=== PATIENT | male | born 1950 | race Caucasian/White ===

== ENCOUNTER 2020-02-07 09:54 | Outpatient (CLI) | payer MEDICARE, SELFPAY ==
[2020-02-07 23:30] LABS: SARS-CoV-2 RNA PCR Negative
== END 2020-02-07 09:55 | disposition home or self-care (01) ==
LOC: CHSLAB 09:59
PROVIDERS: PCP Internal Medicine; Visit Provider Internal Medicine
DX: Z20.828 Contact with and (suspected) exposure to other viral communicable diseases (principal)
CPT/HCPCS: 87635; C9803; U0003

== ENCOUNTER 2020-03-09 08:43 | Outpatient (CLI) | payer MEDICARE, SELFPAY ==
[2020-03-09 09:24] LABS: SARS-CoV-2 Ag Negative (Negative)
[2020-03-11 17:16] LABS: SARS-CoV-2 RNA PCR Negative
== END 2020-03-09 08:44 | disposition home or self-care (01) ==
PROVIDERS: PCP Internal Medicine; Visit Provider Internal Medicine
DX: Z20.822 Contact with and (suspected) exposure to COVID-19 (principal)
CPT/HCPCS: 87426; C9803; U0003; U0005

== ENCOUNTER 2021-11-27 18:27 | Emergency (ER) | payer MEDICARE, SELFPAY ==
[2021-11-27 18:47] VITALS: BP 162/93; PULSE 78; RESP 16; O2SAT 97
[2021-11-27 19:16] VITALS: TEMP 36.1
--- NOTE | 2021-11-27 19:21 | ED.LOWEXIN ---
HPI - Extremity Injury (Lower) General Chief Complaint: Extremity Injury, Lower Stated Complaint: right leg injury Source: patient Mode of arrival: ambulatory Limitations: no limitations History of Present Illness HPI Narrative: 71-year-old male history of hypertension, atrial fibrillation on Xarelto was getting off his car this morning when he sustained -- V shape and measuring 3.5 cm. The bleeding stopped and he proceeded to work all day. When he returned from work and took off his dressing he noted profuse bleeding from the laceration. No other injuries noted. Onset (ago): hour(s) ( 12 hours ago) Type of Injury: blunt Place: street/outdoors Severity: mild Relieving factors: nothing Exacerbating factors: nothing Related Data Home Medications Medication Instructions Recorded Confirmed amlodipine 2.5 mg tablet 2.5 mg DAILY 11/27/21 11/27/21 carvedilol 3.125 mg tablet 3.125 mg BID 11/27/21 11/27/21 duloxetine 30 mg capsule,delayed 30 mg PO DAILY 11/27/21 11/27/21 release nortriptyline 25 mg capsule 25 mg DAILY 11/27/21 11/27/21 rivaroxaban 20 mg tablet (Xarelto) 20 mg DAILY 11/27/21 11/27/21 Allergies Allergy/AdvReac Type Severity Reaction Status Date / Time No Known Allergies Allergy Verified 11/27/21 18:55 Review of Systems Review of Systems: All systems reviewed & are unremarkable except as noted in HPI and below Constitutional: Constitutional: Reports as per HPI and Reports no additional constitutional complaints Eyes: Eyes: Reports as per HPI and Reports no additional eye complaints ENT: Reports system reviewed and no additional complaints, except as documented and Reports as per HPI Comments: hard of hearing. Cardiovascular: Cardiovascular: Reports as per HPI and Reports no additional cardiovascular complaints Respiratory: Respiratory: Reports as per HPI and Reports no additional respiratory complaints Gastrointestinal: Gastrointestinal: Reports as per HPI and Reports no additional gastrointestinal complaints Genitourinary: Genitourinary: Reports no additional male genitourinary complaints and Reports as per HPI Musculoskeletal: Musculoskeletal: Reports no additional musculoskeletal complaints and Reports as per HPI Integumentary/Breasts: Comments: V-shaped laceration on his right rosales measuring 3.5 cm. no bleeding at this time Neurologic: Reports system reviewed and no additional complaints, except as documented and Reports as per HPI Psychiatric: Psychiatric: Reports no additional psychiatric complaints and Reports as per HPI Endocrine: Endocrine: Reports no additional endocrine complaints and Reports as per HPI Hematologic/Lymphatic: Hematologic/Lymphatic: Reports no additional hematologic/lymphatic complaints and Reports as per HPI Allergic/Immunologic: Allergic/Immunologic: Reports no additional allergic/immunologic complaints and Reports as per HPI [facility] Past Medical History Medical History Atrial fibrillation Hypertension Exam Const: General: no acute distress Orientation/consciousness: patient oriented x3 Limitations: no limitations HENMT: Head: normal to inspection Ears: external ears normal Face/Nose/Sinus: Normal external nose present Face and sinus: normal facial exam Mouth: Yes Normal oral and palatal mucosa present Throat: posterior oropharynx normal Other: decreased hearing Eyes: Conjunctivae: conjunctivae normal Pupils: Equal, round and reactive pupils present Direct Ophthalmoscopy: no photophobia Neck: Neck: normal visual inspection, no lymphadenopathy, no meningeal signs and lymphadenopathy Chest: Chest palpation & inspection: normal inspection of the chest Resp: Effort & Inspection: normal respiratory effort Auscultation: clear to auscultation bilaterally Cardio: Rate: tachycardic Rhythm: abnormal rhythm GI: GI Palp: Yes Soft to palpation Auscultation: normal bowel sounds Other:
[2021-11-27 20:08] VITALS: BP 126/87; PULSE 75; RESP 16; TEMP 36.4; O2SAT 99
== END 2021-11-27 20:14 | disposition home or self-care (01) ==
PROVIDERS: Emergency Provider Internal Medicine Critical Care Medicine; PCP Internal Medicine
DX: I48.91 Unspecified atrial fibrillation (principal); S81.811A Laceration without foreign body, right lower leg, initial encounter; I10 Essential (primary) hypertension
CPT/HCPCS: 12002; 99282

== ENCOUNTER 2021-11-29 10:52 | Outpatient (CLI) | payer MEDICARE, SELFPAY ==
[2021-11-29 11:36] LABS: Basophils Absolute Auto 0.04 K/mm3 (0.00-0.10); Basophils Percent Auto 0.5 % (0.0-1.0); Eosinophils Absolute Auto 0.04 K/mm3 (0.02-0.50); Eosinophils Percent Auto 0.5 % (1.0-6.0); Hematocrit 37.9 % (37.0-46.0); Hemoglobin 12.9 g/dL (12.4-15.3); Immature Granulocyte Absolute 0.02 K/mm3 (0.00-0.00); Immature Granulocyte Percent A 0.2 % (0.0-0.0); Lymphocytes Absolute Auto 1.49 K/mm3 (1.10-4.50); Mean Corpuscular Hemoglobin 33.9 pg (27.0-31.0); Mean Corpuscular Volume 99.5 fL (78.0-102.0); Mean Platelet Volume 8.9 fl (8.7-11.0); Monocytes Absolute Auto 0.58 K/mm3 (0.10-0.90); Neutrophils Absolute Auto 6.1 K/mm3 (1.7-7.2); Neutrophils Percent Auto 73.8 % (50.0-70.0); Platelet Count Result 254 K/mm3 (150-420); Red Blood Count 3.81 M/mm3 (4.70-6.10); White Blood Count 8.3 K/mm3 (4.8-10.8)
[2021-11-29 12:24] LABS: Anion Gap 7 mmol/L (8-16); Blood Urea Nitrogen 35 mg/dL (7-18); Calcium 9.4 mg/dL (8.5-10.1); Carbon Dioxide 29 mmol/L (21-32); Chloride 103 mmol/L (98-108); Estimated Glomerular Filt Rate > 60; Glucose 113 mg/dL (70-99); Osmolality Calculated 297 mOsm/kg (285-295); Potassium 4.9 mmol/L (3.5-5.1); Sodium 139 mmol/L (136-145)
== END 2021-11-29 10:53 | disposition home or self-care (01) ==
LOC: CHSLAB 10:55
PROVIDERS: PCP Internal Medicine; Visit Provider Internal Medicine Cardiovascular Disease
DX: I48.19 Other persistent atrial fibrillation (principal); I42.9 Cardiomyopathy, unspecified
CPT/HCPCS: 36415; 80048; 85025

== ENCOUNTER 2021-12-10 08:34 | Outpatient (CLI) | payer MEDICARE, SELFPAY ==
--- NOTE | ~2021-12-10 | XR_ITS ---
XR knee LT min 4V DATE: 12/10/2021 09:17 INDICATION: Chronic left knee pain TECHNIQUE: 5 views COMPARISON: None FINDINGS: There is prominent narrowing at the medial compartment joint space. There is enthesopathy at the quadriceps and patellar tendon insertion sites. There is mild periarticu lar spurring of the patella. No fracture, dislocation, periosteal reaction or bone destruction. No joint effusion is noted. No rad iopaque intra-articular loose body or chondrocalcinosis. IMPRESSION: Osteoarthritis, most severe at the medial compartment Reviewed, dictated and finalized at location A.
--- NOTE | ~2021-12-10 | XR_ITS ---
XR knee RT min 4V DATE: 12/10/2021 09:17 INDICATION: Chronic right knee pain TECHNIQUE: 5 views COMPARISON: None FINDINGS: There is enthesopathy at the superior pole of the patella. Heterotopic calcifications are n oted along the quadriceps muscle distally. There is prominent joint space narrowing of the medial compartment with some cupping of the medial ti bial plateau. There is periarticular spurring at all 3 compartments. No fracture or dislocation, joint effusion, periosteal reaction or bone destruction, radiopaque intra -articular loose body or chondrocalcinosis is detected. 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 IMPRESSION: Tricompartment osteoarthritis, most severe at the medial compartmen t
== END 2021-12-10 08:35 | disposition home or self-care (01) ==
LOC: CHSIMG 08:37
PROVIDERS: PCP Internal Medicine; Visit Provider Orthopaedic Surgery
DX: M25.562 Pain in left knee (principal); M25.561 Pain in right knee
CPT/HCPCS: 73564

== ENCOUNTER 2022-07-01 10:59 | Outpatient (CLI) | payer MEDICARE, SELFPAY ==
[2022-07-01 11:12] LABS: Basophils Absolute Auto 0.05 K/mm3 (0.00-0.10); Eosinophils Absolute Auto 0.06 K/mm3 (0.02-0.50); Eosinophils Percent Auto 1.2 % (1.0-6.0); Hematocrit 40.4 % (37.0-46.0); Hemoglobin 13.3 g/dL (12.4-15.3); Immature Granulocyte Absolute 0.01 K/mm3 (0.00-0.00); Immature Granulocyte Percent A 0.2 % (0.0-0.0); Lymphocytes Absolute Auto 1.54 K/mm3 (1.10-4.50); Mean Corpuscular HGB Conc 32.9 g/dL (32.0-36.0); Mean Corpuscular Hemoglobin 33.3 pg (27.0-31.0); Mean Platelet Volume 8.8 fl (8.7-11.0); Monocytes Absolute Auto 0.36 K/mm3 (0.10-0.90); Monocytes Percent Auto 7.5 % (2.0-11.0); Neutrophils Absolute Auto 2.8 K/mm3 (1.7-7.2); Neutrophils Percent Auto 58.1 % (50.0-70.0); Platelet Count Result 369 K/mm3 (150-420); Red Cell Distribution Width 12.9 % (11.6-14.4); White Blood Count 4.8 K/mm3 (4.8-10.8)
[2022-07-01 11:13] LABS: Appearance Urine Clear (Clear); Bilirubin Urine 1+ (Negative); Blood Urine Negative (Negative); Glucose Urine UA Negative (Negative); Ketones Urine Trace (Negative); Leukocyte Esterase Ur Trace (Negative); Nitrate Urine Negative (Negative); Protein Urine 1+ (Negative)
[2022-07-01 11:25] LABS: Color Urine Amber (Yellow)
[2022-07-01 11:26] LABS: Add Urine Microscopic? YES; Bacteria Urine Trace /hpf; RBC Urine 0-2 /hpf (0-2); WBC Urine 0-3 /hpf (0-3)
[2022-07-01 12:20] LABS: Alanine Aminotransferase 50 U/L (16-63); Albumin Level 3.8 g/dL (3.4-5.0); Alkaline Phosphatase 67 U/L (46-116); Anion Gap 7 mmol/L (8-16); Aspartate Amino Transferase 28 U/L (15-37); Bilirubin,Total 0.8 mg/dL (0.00-1.00); Blood Urea Nitrogen 21 mg/dL (7-18); Calcium 9.4 mg/dL (8.5-10.1); Carbon Dioxide 29 mmol/L (21-32); Chloride 102 mmol/L (98-108); Cholesterol 198 mg/dL (0-200); Estimated Glomerular Filt Rate > 60; Glucose 92 mg/dL (70-99); HDL Direct 10 mg/dL (40-60); LDL Cholesterol Calculated 161 mg/dL (<130); Osmolality Calculated 289 mOsm/kg (285-295); Potassium 4.9 mmol/L (3.5-5.1); Prostate Specific Antigen 1.2 ng/mL (< OR = 4.0); Sodium 138 mmol/L (136-145); Thyroid Stimulating Hormone 2.27 uIU/mL (0.36-3.74); Total Protein 6.7 g/dL (6.4-8.2); Triglycerides 133 mg/dL (0-150)
== END 2022-07-01 11:00 | disposition home or self-care (01) ==
LOC: CHSLAB 11:02
PROVIDERS: PCP Internal Medicine; Visit Provider Internal Medicine
DX: Z12.5 Encounter for screening for malignant neoplasm of prostate (principal); I48.91 Unspecified atrial fibrillation; E78.5 Hyperlipidemia, unspecified
CPT/HCPCS: 36415; 80053; 80061; 81001; 84153; 84443; 85025; G0103

== ENCOUNTER 2023-10-30 10:47 | Emergency (ER) | payer MEDICARE, SELFPAY ==
[2023-10-30] VITALS (36 sets, daily range): BP systolic 108–141; BP diastolic 57–74; PULSE 51–68; RESP 12–23; TEMP 36.4; O2SAT 93–100
--- NOTE | ~2023-10-30 | XR_ITS ---
EXAMINATION: XR chest 1V portable DATE: 10/30/2023 11:07 INDICATION: Weakness. Hypotension. TECHNIQUE: A single frontal view of the chest was obtained. COMPARISON: None. FINDINGS: There is no pneumonia, pleural effusion, or pneumothorax. Cardiomegaly is noted. IMPRESSION: 1. Cardiomegaly. Reviewed, dictated and finalized at location A. IMPRESSION: 1. Cardiomegaly.
--- NOTE | 2023-10-30 10:51 | ECG_ITS ---
Test Date: 2023-10-30 11:00:59 Measurements Intervals [place] Rate: 70 P: 0 IA: 0 QRS: 69 QRSD: 105 T: 56 QT: 422 QTc: 456 Interpretive Statements ATRIAL FIBRILLATION ST-T WAVE ABNORMALITY IN ANTEROLATERAL LEADS- CONSIDER ISCHEMIA ABNORMAL ECG No previous ECG available for comparison Electronically Signed On 10-30-2023 11:02:41 CDT by Miguel Warner D.O.
--- NOTE | 2023-10-30 10:56 | ED.GENADULT ---
HPI - General Adult General Chief complaint: Arrhythmia/Palpitations Stated complaint: chest pain Source: patient Mode of arrival: ambulatory Limitations: no limitations History of Present Illness HPI narrative: 73 years old white male lives alone, noticed that his blood pressure this morning is lower than usual approximately 97/51. Patient usually runs at higher level than this 1. Called his daughter who brought him to the emergency room. He denies any headache, chest pain, shortness of breath, back pain or abdominal pain. On arrival to the ED blood pressure is 141/66. Patient denies any fever, chills, nausea, vomiting, diarrhea, constipation or urinary symptoms Related Data Home Medications Medication Instructions Recorded Confirmed amlodipine 2.5 mg tablet 2.5 mg DAILY 11/27/21 10/31/23 carvedilol 3.125 mg tablet 3.125 mg BID 11/27/21 10/31/23 duloxetine 30 mg capsule,delayed 30 mg PO DAILY 11/27/21 10/31/23 release nortriptyline 25 mg capsule 25 mg DAILY 11/27/21 10/31/23 rivaroxaban 20 mg tablet (Xarelto) 20 mg DAILY 11/27/21 10/31/23 Allergies Allergy/AdvReac Type Severity Reaction Status Date / Time No Known Allergies Allergy Verified 10/30/23 11:03 Review of Systems Review of Systems: All systems reviewed & are unremarkable except as noted in HPI and below PMFSH Past Medical History Medical History Arthritis Atrial fibrillation Depression Hearing loss Hypertension Surgical History Surgical History History of appendectomy 2010 Family History Family History (Updated 10/31/23 @ 06:30 by Lacey Amos RN) Father Cerebrovascular accident Mother Cancer Other Arthritis Depression Diabetes mellitus HLD (hyperlipidemia) Heart disease Hypertension Social History Social History Smoking status: Never smoker Alcohol intake: former Substance use: never Substance use type: does not use Do You Feel Safe in your Home?: Yes Lack of Transportation: No Lack of Food: Never True Current Housing: I Have Housing Concerned About Future Housing: No Difficulty Paying Gas/Electric Bills: No Difficulty Paying for Meds: No Currently Unemployed: No Education: High School Diploma/GED Difficulty w/ Childcare or Family Care: No Occupation/Education: occupation Gender identity (if verbalized by the patient): Male Spiritual care concerns: No Exam Narrative: General appearance: Well-developed, well-nourished Skin: Normal color Head: Normocephalic, nontraumatic Eyes: Clear conjunctiva ENT: Oropharynx normal, ears normal, nose normal Neck: Supple, nontender Chest and respiratory: Airway patent, no respiratory distress, no accessory muscle use Heart: irregular irregularity Abdomen: Soft, nontender, no organomegaly, quiet bowel sounds Vascular: Normal peripheral pulses, normal capillary refill. 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 Park Accepted patient transferred to hospitalist Date: 10/30/23 Time: 14:01 Consultation #2: DR MAGANA, HOSPITALIST AT [facility] WHO ACCEPTED PATIENT TRANSFER Date: 10/31/23 Vital Signs Vital signs: Vital Signs Temperature 36.4 C 10/30/23 10:47 Pulse Rate 66 10/30/23 10:47 Respiratory Rate 15 10/30/23 10:47 Blood Pressure 141/66 H 10/30/23 10:47 Pulse Oximetry 100 10/30/23 10:47 Oxygen Delivery Room Air 10/29
[2023-10-30 11:13] LABS: Hematocrit 22.4 % (37.0-46.0); Hemoglobin 7.3 g/dL (12.4-15.3); Mean Corpuscular HGB Conc 32.6 g/dL (32-36); Mean Corpuscular Hemoglobin 30.2 pg (27.0-31.0); Mean Corpuscular Volume 92.6 fL (78.0-102.0); Mean Platelet Volume 7.7 fl (8.7-11.0); Platelet Count Result 310 K/mm3 (150-420); Red Blood Count 2.42 M/mm3 (4.70-6.10); Red Cell Distribution Width 12.7 % (11.6-14.4); White Blood Count 3.8 K/mm3 (4.8-10.8)
[2023-10-30 11:30] LABS: INR 1.1; Partial Thromboplastin Time 26.4 Sec (23.9-30.70); Prothrombin Time 11.6 Seconds (9.50-12.1)
--- NOTE | 2023-10-30 11:45 | PC.NURSE ---
Pt resting comfortably in his room with daughter at bedside. I explained to both of them that the analyzer machine in lab is down and that his blood has to be taken to [facility] to be run and that this will cause a delay in results. They stated that understood.
--- NOTE | 2023-10-30 12:02 | PC.NURSE ---
Notified ERP, by phone, that pt's heart has been consistently in the 50's. No new orders at this time.
[2023-10-30 12:06] LABS: Alanine Aminotransferase 23 U/L (6-50); Albumin Level 3.9 g/dL (3.5-5.1); Alkaline Phosphatase 53 U/L (38-126); Anion Gap 12 mmol/L (4-12); Aspartate Amino Transferase 29 U/L (17-59); Bilirubin,Total 0.4 mg/dL (0.2-1.3); Blood Urea Nitrogen 24 mg/dL (9-20); Calcium 9.1 mg/dL (8.4-10.2); Carbon Dioxide 23 mmol/L (22-30); Chloride 99 mmol/L (98-107); Estimated CRCL calculation 60 ml/min; Estimated Glomerular Filt Rate > 60; Glucose 119 mg/dL (65-110); Osmolality Calculated 283 mOsm/kg (285-295); Sodium 134 mmol/L (137-145)
[2023-10-30 12:13] LABS: Band Neutrophils Percent 0 % (0-6); Basophils Absolute Manual 0.03 K/mm3 (0-0.1); Basophils Percent Manual 1 % (0-1); Eosinophils Absolute Manual 0.07 K/mm3 (0.02-0.50); Eosinophils Percent Manual 2 % (1-6); Lymphocytes Percent Manual 29 % (18-44); Monocytes Absolute Manual 0.19 K/mm3 (0.1-0.90); Monocytes Percent Manual 5 % (3-9); Neutrophils Absolute Manual 2.39 K/mm3 (1.3-6.7); Neutrophils Percent Manual 63 % (46-73); Platelet Estimate Adequate (Adequate); Schistocytes None Seen; Total Cells Counted 100
[2023-10-30 12:17] LABS: Troponin I < 0.012 ng/mL (0.000-0.034)
[2023-10-30 12:18] LABS: Occult Blood Negative (Negative)
--- NOTE | 2023-10-30 13:40 | PC.NURSE ---
Pt resting comfortably in stretcher. Got pt a warm blanket. Daughter at bedside.
--- NOTE | 2023-10-30 14:20 | PC.NURSE ---
Updated pt and his daughter on status of transfer to [place]. Dr Hood accepted pt to service. alondra James sup, added pt to waitlist for bed. Pt resting comfortably in stretcher.
--- NOTE | 2023-10-30 15:40 | PC.NURSE ---
Pt still resting comfortably. Daughter at bedside. No requests or concerns at this time.
--- NOTE | 2023-10-30 16:35 | PC.NURSE ---
Discussed with pt and daughter that we are still waiting for a bed at [place]. Pt has no needs or concerns at this time.
--- NOTE | 2023-10-30 17:12 | PC.NURSE ---
Pt dozing in stretcher. Daughter still at bedside.
--- NOTE | 2023-10-30 18:06 | PC.NURSE ---
Pt moved to Room 3 and placed in hospital bed for comfort. Gave him heart healthy dinner tray. Daughter still at bedside. Still waiting on bed at [place].
[2023-10-30 18:19] LABS: Hematocrit 23.9 % (37.0-46.0); Hemoglobin 7.7 g/dL (12.4-15.3)
[2023-10-30] MEDS: SODIUM CHLORIDE 0.9% IV 1,000 ML 75 ML IV CONT (18:22)
--- NOTE | 2023-10-30 21:50 | PC.NURSE ---
pt stood at side of bed to use urinal. pt back in bed. no complaints at this time
[2023-10-31] VITALS (38 sets, daily range): BP systolic 116–146; BP diastolic 62–85; PULSE 42–76; RESP 13–23; TEMP 36.1–36.2; O2SAT 94–100
[2023-10-31 00:11] LABS: Hematocrit 20.7 % (37.0-46.0)
[2023-10-31 00:13] LABS: Hemoglobin 6.7 g/dL (12.4-15.3)
--- NOTE | 2023-10-31 00:14 | PC.NURSE ---
pt stood at side of bed to use urinal tech was present. pt back in bed no complaints at this time
[2023-10-31] MEDS: NORTRIPTYLINE HCL 25 MG CAPSULE PO (01:20)
[2023-10-31] MEDS: SODIUM CHLORIDE 0.9% IV 250 ML 30 ML IV CONT (01:55)
== END 2023-10-31 05:15 | disposition short-term general hospital (02) ==
PROVIDERS: Emergency Provider Emergency Medicine; PCP Internal Medicine
DX: K92.2 Gastrointestinal hemorrhage, unspecified (principal); D64.9 Anemia, unspecified; I48.91 Unspecified atrial fibrillation; I10 Essential (primary) hypertension; Z79.01 Long term (current) use of anticoagulants; Z79.899 Other long term (current) drug therapy
CPT/HCPCS: 36415; 36430; 71045; 80053; 82272; 84484; 85014; 85018; 85025; 85610; 85730; 86850; 86900; 86901; 86920; 93005; 96360; 96361; 99285; A9270; J7030; J7050; P9016

== ENCOUNTER 2023-10-31 06:09 | Inpatient (IN) | payer MEDICARE, SELFPAY ==
[2023-10-31] VITALS (7 sets, daily range): BP systolic 111–161; BP diastolic 46–86; PULSE 50–75; RESP 16–22; TEMP 36.7–37; O2SAT 98–100; BMI 20.6
--- NOTE | 2023-10-31 06:00 | ADMGEN ---
This patient, Levon Lake, was admitted to [address] [place] [address] Room [facility] at 0550. Patient/family oriented to hospital policies and general routines including ID bracelet, bed and alarms, visiting hours, pain management, procedures, bathroom and other care routines, personal items, smoking policy, room service/diet, and visiting hours. Information on how to activate the Rapid Response Team has been discussed. Patient/Family are encouraged to report perceived risks to care and to ask questions if they do not understand what they are told or what they should do.
[2023-10-31 07:19] LABS: Basophils Percent Auto 0.8 % (0.2-1.2); Eosinophils Absolute Auto 0.1 K/mm3 (0-0.3); Eosinophils Percent Auto 1.5 % (0-4.4); Hematocrit 26.2 % (42.0-52.0); Hemoglobin 8.4 g/dL (14.0-18.0); Immature Granulocyte Absolute 0.01 K/mm3 (0.00-0.031); Immature Granulocyte Percent A 0.2 % (0-0.5); Lymphocytes Absolute Auto 1.69 K/mm3 (0.9-3.2); Lymphocytes Percent Auto 32.6 % (18.3-44.2); Mean Corpuscular HGB Conc 32.1 g/dl (32-36); Mean Corpuscular Hemoglobin 30.8 pg (26-34); Mean Platelet Volume 8.5 fl (7.4-10.4); Monocytes Absolute Auto 0.4 K/mm3 (0.1-0.6); Monocytes Percent Auto 8.5 % (2.6-8.5); Neutrophils Absolute Auto 2.9 K/mm3 (1.3-6.7); Neutrophils Percent Auto 56.4 % (45.5-73.1); Platelet Count Result 339 k/mm3 (150-375); Red Blood Count 2.73 M/mm3 (4.6-6.20); Red Cell Distribution Width 13.2 % (11.5-14.5); White Blood Count 5.2 K/mm3 (4.5-10.0)
[2023-10-31 07:28] LABS: Anion Gap 7 mmol/L (4-12); Blood Urea Nitrogen 17 mg/dL (9-20); Calcium 9.2 mg/dL (8.4-10.2); Carbon Dioxide 26 mmol/L (22-30); Chloride 103 mmol/L (98-107); Estimated CRCL calculation 75 ml/min; Estimated Glomerular Filt Rate > 60; Glucose 92 mg/dL (65-110); Potassium 4.2 mmol/L (3.4-5.0); Sodium 136 mmol/L (137-145)
[2023-10-31 07:31] LABS: INR 1.1; Prothrombin Time 14.5 Seconds (11.1-14.7)
[2023-10-31 07:32] LABS: Partial Thromboplastin Time 43.3 Seconds (22.3-36.8)
--- NOTE | 2023-10-31 13:48 | PM.IMHP ---
H&P: HPI History of Present Illness Date/Time: 10/31/23 13:48 Chief Complaint: Dizziness/low BP Narrative: Patient is a 73-year-old gentleman with past medical history of AFib admitted due to GI bleed. Patient daughter was at the bedside during the examination was able to give the history says since patient has some hearing issues. As per his daughter patient lives in a home, walks by himself without any assistance but patient has advanced OA of BL knee and pending knee replacement. Denies any heart surgery, stroke or any kidney disease. Patient daughter routinely checks on him but past 1 week she was not able to come to his house. Patient reported to his daughter that his diastolic pressure is not coming up above 40. Patient daughter works at [employer] who went to his house to check. She noted blood in his toilet bowl. She was trying to check his heart rate through the pulse ox but it ranges between 52-205. The blood pressure at the time was 110/ 60. She brought him to [facility]. Initial hemoglobin was 7.3 but the repeat was 6.7 and 1 unit of packed RBC was transfused. Later patient was transferred to [facility]. Pending GI evaluation. In the meantime we are holding Xarelto. Explained to the patient and his daughter risk versus benefit of stopping Xarelto. Both completely understands and wants Xarelto to be stopped. Repeat hemoglobin has been ordered. Currently patient is resting well in the bed with no signs of distress. Review of Systems Review of Systems: All systems reviewed & are unremarkable except as noted in HPI and below PMFSH Past Medical History Medical History (Updated 10/31/23 @ 15:00 by Lizandro Hernandes MD) Acute blood loss anemia Arthritis Atrial fibrillation Blood thinned due to long-term anticoagulant use Depression Hearing loss Hypertension Rectal bleeding Surgical History Surgical History History of appendectomy 2010 Family History Family History (Updated 10/31/23 @ 06:30 by Lacey Amos RN) Father Cerebrovascular accident Mother Cancer Other Arthritis Depression Diabetes mellitus HLD (hyperlipidemia) Heart disease Hypertension Social History Social History Smoking status: Never smoker Alcohol intake: former Substance use: never Substance use type: does not use Do You Feel Safe in your Home?: Yes Lack of Transportation: No Lack of Food: Never True Current Housing: I Have Housing Concerned About Future Housing: No Difficulty Paying Gas/Electric Bills: No Difficulty Paying for Meds: No Currently Unemployed: No Education: High School Diploma/GED Difficulty w/ Childcare or Family Care: No Occupation/Education: occupation Gender identity (if verbalized by the patient): Male Spiritual care concerns: No Meds Home Medications and Allergies Home Medications Medication Instructions Recorded Confirmed Type amlodipine 2.5 mg tablet 2.5 mg DAILY 11/27/21 10/31/23 History carvedilol 3.125 mg tablet 3.125 mg BID 11/27/21 10/31/23 History duloxetine 30 mg capsule,delayed 30 mg PO DAILY 11/27/21 10/31/23 History release nortriptyline 25 mg capsule 25 mg DAILY 11/27/21 10/31/23 History rivaroxaban 20 mg tablet (Xarelto) 20 mg DAILY 11/27/21 10/31/23 History Allergies Allergy/AdvReac Type Severity Reaction Status Date / Time No Known Allergies Allergy Verified 10/30/23 11:03 Vital Signs Vital Signs - 24 hr 10/31/23 06:00 10/31/23 08:00 10/31/23 12:00 Temperature 98.1 F Pulse Rate 59 L 52 L Respiratory Rate 22 H Blood Pressure 161/85 H Pulse Oximetry 100 Oxygen Delivery Room Air Exam Narrative: General appearance: Well-developed, well-nourished Skin: Normal color Head: Normocephalic, nontraumatic Eyes: Clear conjunctiva ENT: Oropharynx normal, ears normal, nose
--- NOTE | 2023-10-31 14:56 | WPDGICN ---
Assessment and Plan Assessment and plan (1) Acute blood loss anemia: Code(s): D62 - Acute posthemorrhagic anemia Status: Acute Assessment and Plan: s/p prbc will need egd and colonoscopy, plan thursday- also need to hold off xarelto for extra day no more episodes since admission and hgb responded to one unit monitor for more signs (2) GI (gastrointestinal bleed): Code(s): K92.2 - Gastrointestinal hemorrhage, unspecified Status: Acute Assessment and Plan: medical management scopes thursday (3) Rectal bleeding: Code(s): K62.5 - Hemorrhage of anus and rectum Status: Acute (4) Atrial fibrillation: Code(s): I48.91 - Unspecified atrial fibrillation Status: Acute (5) Blood thinned due to long-term anticoagulant use: Code(s): Z79.01 - care home (current) use of anticoagulants Status: Acute Assessment and Plan: on hold GI Consult Note Consult date/time: 10/31/23 14:56 Reason for consult: rectal bleeding, symptomatic anemia HPI: Levon Lake is a 73 year old male with past medical history of AFib admitted due to GI bleed. He has h/po Afib on xarelto, last colonoscopy over 10 years ago. He is hard of hearing and daughter helping with history. She checked on patient at home and noted he was quite weak, pale and his BP was running low, also he mentioned that had one episode of BRBPR (noted blood in toilet bowl). Denies nausea or vomiting. She brought him to [facility] and was orthostatic. Initial hemoglobin was 7.3 but the repeat was 6.7 and 1 unit of packed RBC was transfused, now up to 8.4, no more episodes of bleeding. Previously he was constipated. Review of Systems Constitutional: Constitutional: Reports lethargy and Reports weakness Eyes: Eyes: Denies blurry vision ENT: Denies Normal hearing present, Denies headache(s) and Denies neck pain Cardiovascular: Cardiovascular: Denies chest pain Respiratory: Respiratory: Denies cough Gastrointestinal: Gastrointestinal: Reports hematochezia Genitourinary: Genitourinary: Denies dysuria Musculoskeletal: Musculoskeletal: Denies neck pain Integumentary/Breasts: Skin/Breast: Denies dry skin Neurologic: Denies Abnormal speech present and Denies headache(s) Psychiatric: Psychiatric: Denies anxiety Endocrine: Endocrine: Denies change in body appearance Hematologic/Lymphatic: Hematologic/Lymphatic: Denies easy bleeding Allergic/Immunologic: Allergic/Immunologic: Denies urticaria PMFSH Past Medical History Medical History (Updated 10/31/23 @ 15:00 by Lizandro Hernandes MD) Acute blood loss anemia Arthritis Atrial fibrillation Blood thinned due to long-term anticoagulant use Depression Hearing loss Hypertension Rectal bleeding Surgical History Surgical History History of appendectomy 2010 Family History Family History (Updated 10/31/23 @ 06:30 by Lacey Amos RN) Father Cerebrovascular accident Mother Cancer Other Arthritis Depression Diabetes mellitus HLD (hyperlipidemia) Heart disease Hypertension Social History Social History Smoking status: Never smoker Alcohol intake: former Substance use: never Substance use type: does not use Do You Feel Safe in your Home?: Yes Lack of Transportation: No Lack of Food: Never True Current Housing: I Have Housing Concerned About Future Housing: No Difficulty Paying Gas/Electric Bills: No Difficulty Paying for Meds: No Currently Unemployed: No Education: High School Diploma/GED Difficulty w/ Childcare or Family Care: No Occupation/Education: occupation Gender identity (if verbalized by the patient): Male Spiritual care concerns: No Meds Home Medications and Allergies Home Medications Medication Instructions Recorded Confirmed Type amlodipine 2.5 mg
[2023-10-31 15:09] LABS: Hematocrit 26.9 % (42.0-52.0); Hemoglobin 8.6 g/dL (14.0-18.0)
[2023-10-31] MEDS: NORTRIPTYLINE HCL 25 MG CAPSULE PO (20:50)
[2023-10-31] MEDS: DULoxetine HCL 30 MG CAPSULE.DR PO (20:50)
--- NOTE | 2023-10-31 22:32 | PC.NURSE ---
Ethernet Network Architect holding patients evening dose of carvedilol per hospitalist instructions in report. ( if heart rate is below 60)
[2023-11-01] VITALS (10 sets, daily range): BP systolic 110–130; BP diastolic 56–76; PULSE 55–83; RESP 16–20; TEMP 36.1–36.9; O2SAT 100
[2023-11-01 05:46] LABS: Hematocrit 25.2 % (42.0-52.0); Mean Corpuscular HGB Conc 31.7 g/dl (32-36); Mean Corpuscular Hemoglobin 29.7 pg (26-34); Mean Corpuscular Volume 93.7 fl (80-100); Mean Platelet Volume 8.3 fl (7.4-10.4); Platelet Count Result 315 k/mm3 (150-375); Red Blood Count 2.69 M/mm3 (4.6-6.20); Red Cell Distribution Width 13.5 % (11.5-14.5); White Blood Count 5.7 K/mm3 (4.5-10.0)
[2023-11-01 06:03] LABS: Alanine Aminotransferase 20 U/L (6-50); Albumin Level 3.3 g/dL (3.5-5.1); Alkaline Phosphatase 52 U/L (38-126); Anion Gap 5 mmol/L (4-12); Aspartate Amino Transferase 25 U/L (17-59); Bilirubin,Total 0.4 mg/dL (0.2-1.3); Blood Urea Nitrogen 13 mg/dL (9-20); Carbon Dioxide 26 mmol/L (22-30); Chloride 106 mmol/L (98-107); Estimated CRCL calculation 75 ml/min; Estimated Glomerular Filt Rate > 60; Glucose 93 mg/dL (65-110); Potassium 4.3 mmol/L (3.4-5.0); Sodium 137 mmol/L (137-145)
--- NOTE | 2023-11-01 08:08 | PC.NURSE ---
RN hold morning Coreg dose as patient's heart rate is consistently below 60's. Per hospitalist note we are told hold Coreg if heart rate is less than 60.
--- NOTE | 2023-11-01 11:35 | WPDGIPROGNO ---
Progress Note: A&P Assessment and Plan (1) Acute blood loss anemia: Code(s): D62 - Acute posthemorrhagic anemia Status: Acute Assessment and Plan: hgb stable at 8 after blood transfusion egd and colonoscopy tomorrow (2) Rectal bleeding: Code(s): K62.5 - Hemorrhage of anus and rectum Status: Acute Assessment and Plan: no more episodes since admission continue to monitor (3) Blood thinned due to long-term anticoagulant use: Code(s): Z79.01 - skilled nursing (current) use of anticoagulants Status: Acute Assessment and Plan: on hold (4) Orthostatic hypotension: Code(s): I95.1 - Orthostatic hypotension Status: Acute (5) GI (gastrointestinal bleed): Code(s): K92.2 - Gastrointestinal hemorrhage, unspecified Status: Inactive Subjective Date/time seen: 11/01/23 11:35 Interval history: feeling tired, no more bleeding he is comfortable family at bedside Review of Systems Review of Systems: All systems reviewed & are unremarkable except as noted in HPI and below Exam Const: General: comfortable and no acute distress HENMT: Face/Nose/Sinus: Normal nares present Eyes: General: appearance normal, both eyes and all related structures Neck: Neck: supple Resp: Auscultation: clear to auscultation bilaterally Cardio: Rate: regular rate Rhythm: regular rhythm GI: Inspection: non-distended GI Palp: Yes Soft to palpation and No Tenderness to palpation present (GI) Auscultation: normal bowel sounds Skin: General skin exam: no rashes or lesions noted Neuro: Speech: normal speech Motor exam (neuro): 5/5 motor strength present throughout Extrem: General: normal to inspection Psych: Mental Status: mental status grossly normal Objective Data Vital Signs Vital Signs: Vital Signs - 24 hr 10/31/23 12:00 10/31/23 14:00 10/31/23 16:00 Temperature 98.2 F Pulse Rate 52 L 59 L 75 Respiratory Rate 16 Blood Pressure 111/46 L Pulse Oximetry 98 Oxygen Delivery 10/31/23 20:56 10/31/23 21:54 10/31/23 20:00 Temperature 98.6 F Pulse Rate 50 L 56 L 70 Respiratory Rate 16 Blood Pressure 148/86 H Pulse Oximetry 99 Oxygen Delivery 11/01/23 00:00 11/01/23 04:00 11/01/23 05:58 Temperature 98.4 F Pulse Rate 66 55 L 71 Respiratory Rate 16 Blood Pressure 130/76 Pulse Oximetry 100 Oxygen Delivery 11/01/23 08:00 Temperature Pulse Rate Respiratory Rate Blood Pressure Pulse Oximetry Oxygen Delivery Room Air Intake/Output Intake/Output: Intake & Output 10/29/23 10/30/23 10/31/23 11/01/23 23:59 23:59 23:59 23:59 Intake Total 1680 200 Balance 1680 200 Meds/Results Medications: Active Medications Generic Name Dose Route Start Last Admin Trade Name Freq PRN Reason Stop Dose Admin Acetaminophen 650 mg 10/31/23 06:08 Acetaminophen 325 Mg Tablet PO Q4H PRN Mild Pain (1-3) or Fever Al Hydrox/Mg Hydrox/Simethicone 30 ml 10/31/23 06:08 Mag Hydrox/Al Hydrox/Simeth 30 Ml Udc PO QID PRN Dyspepsia Bisacodyl 20 mg 11/01/23 18:00 Bisacodyl 5 Mg Tablet Ec PO 11/01/23 18:01 ONCE ONE Carvedilol 3.125 mg 10/31/23 10:10 11/01/23 08:08 Carvedilol 3.125 Mg Tablet PO Not Given Q12HR DOROTHY Duloxetine HCl 30 mg 10/31/23 21:00 10/31/23 20:50 Duloxetine Hcl 30 Mg Capsule.Dr PO 30 mg 2100 DOROTHY Administration Magnesium Citrate 300 ml 11/02/23 02:00 Magnesium Citrate 300 Ml Btl PO 11/02/23 02:01 ONCE ONE Magnesium Hydroxide 30 ml 10/31/23 06:08 Magnesium Hydroxide Susp 30 Ml Udc PO DAILY PRN Constipation Nortriptyline HCl 25 mg 10/31/23 21:00 10/31/23 20:50 Nortriptyline Hcl 25 Mg Capsule PO 25 mg HS DOROTHY Administration Ondansetron HCl 4 mg 10/31/23 06:08 Ondansetron Inj 4 Mg/2 Ml Vial IV PUSH Q6H PRN Nausea And Vomiting Polyethylene Glycol 238 gm 11/01/23 18:00 Rafael
--- NOTE | 2023-11-01 14:39 | PM.IMPN ---
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, left knee Status: Acute (4) Right knee DJD: Qualifiers: Osteoarthritis type: primary Qualified Code(s): M17.11 - Unilateral primary osteoarthritis, right knee Code(s): M17.11 - Unilateral primary osteoarthritis, right knee Status: Acute (5) Atrial fibrillation: Code(s): I48.91 - Unspecified atrial fibrillation Status: Acute Plan #GI Bleed Hemoglobin 13.18 Jun 2022 Transfused 1 unit at [place] Monitor vitals Trending hemoglobin GI on board Possible colonoscopy tomorrow Target hemoglobin 7 #Atrial fibrillation Hold Xarelto Reviewed risk versus benefit of holding Xarelto to the patient and the POA Carvedilol 3.125 b.i.d., hold if heart rate is less than 60 Currently holding Coreg due to low HR and doesnt want to mask the sx of anemia Subjective Date/time seen: 11/01/23 14:39 Interval history: Patient is evaluated at bedside along with his daughter. patients reports feeling tired. His HgB is dropped from 8.6 to 8. Patient will undergo colonoscopy and upper endoscopy tomorrow. Currently holding Coreg due to low HR and doesnt want to mask the sx of anemia Review of Systems Review of Systems: All systems reviewed & are unremarkable except as noted in HPI and below Exam Narrative: General appearance: Well-developed, well-nourished Skin: Normal color Head: Normocephalic, nontraumatic Eyes: Clear conjunctiva ENT: Oropharynx normal, ears normal, nose normal Neck: Supple, nontender Chest and respiratory: Airway patent, no respiratory distress, no accessory muscle use Heart: irregular irregularity Abdomen: Soft, nontender, no organomegaly, quiet bowel sounds Vascular: Normal peripheral pulses, normal capillary refill. Musculoskeletal: Normal range of motion, nontender back Neurologic: Alert and oriented ?3, PLATE MOUNTER is normal as tested, no gross motor deficit Objective Data Vital Signs Vital Signs: Vital Signs - 24 hr 10/31/23 16:00 10/31/23 20:56 10/31/23 21:54 Temperature 98.6 F Pulse Rate 75 50 L 56 L Respiratory Rate 16 Blood Pressure 148/86 H Pulse Oximetry 99 Oxygen Delivery 10/31/23 20:00 11/01/23 00:00 11/01/23 04:00 Temperature Pulse Rate 70 66 55 L Respiratory Rate Blood Pressure Pulse Oximetry Oxygen Delivery 11/01/23 05:58 11/01/23 08:00 11/01/23 14:30 Temperature 98.4 F 98.4 F Pulse Rate 71 66 Respiratory Rate 16 16 Blood Pressure 130/76 110/65 Pulse Oximetry 100 100 Oxygen Delivery Room Air Intake/Output Intake/Output: Intake & Output 10/29/23 10/30/23 10/31/23 11/01/23 23:59 23:59 23:59 23:59 Intake Total 1680 440 Balance 1680 440 Meds/Results Medications: Active Medications Generic Name Dose Route Start Last Admin Trade Name Freq PRN Reason Stop Dose Admin Acetaminophen 650 mg 10/31/23 06:08 Acetaminophen 325 Mg Tablet PO Q4H PRN Mild Pain (1-3) or Fever Al Hydrox/Mg Hydrox/Simethicone 30 ml 10/31/23 06:08 Mag Hydrox/Al Hydrox/Simeth 30 Ml Udc PO QID PRN Dyspepsia Bisacodyl 20 mg 11/01/23 18:00 Bisacodyl 5 Mg Tablet Ec PO 11/01/23 18:01 ONCE ONE Carvedilol 3.125 mg 10/31/23 10:10 11/01/23 08:08 Carvedilol 3.125 Mg Tablet PO Not Given Q12HR DOROTHY Duloxetine HCl 30 mg 10/31/23 21:00 10/31/23 20:50 Duloxetine Hcl 30 Mg Capsule.Dr PO 30 mg 2100 DOROTHY Administration Sodium Chloride 1,000 mls @ 75 mls/hr 11/01/23 11:55 Normal Saline Iv IV CONT .[id number] DOROTHY Magnesium Citrate 300 ml 11/02/23 02:00 Magnesium Citrate 300 Ml Btl PO 11/02/23 02:01 ONCE ONE Magnesium Hydr
[2023-11-01 17:03] LABS: Hematocrit 25.3 % (42.0-52.0); Hemoglobin 8.3 g/dL (14.0-18.0)
[2023-11-01] MEDS: BISACODYL 5 MG TABLET EC 20 MG PO (17:29)
[2023-11-01] MEDS: polyethylene glycoL 3350 238 GM BOTTLE PO (17:30)
[2023-11-01] MEDS: carvediloL 3.125 MG TABLET PO (20:31)
[2023-11-01] MEDS: NORTRIPTYLINE HCL 25 MG CAPSULE PO (20:31)
[2023-11-01] MEDS: DULoxetine HCL 30 MG CAPSULE.DR PO (20:32)
[2023-11-02] VITALS (13 sets, daily range): BP systolic 110–138; BP diastolic 52–84; PULSE 52–103; RESP 16–20; TEMP 36.2–36.4; O2SAT 96–100
[2023-11-02] MEDS: SODIUM CHLORIDE 0.9% IV 1,000 ML 75 ML IV CONT (01:50)
[2023-11-02] MEDS: MAGNESIUM CITRATE 300 ML BTL PO (01:52)
[2023-11-02 05:34] LABS: Hematocrit 25.7 % (42.0-52.0); Hemoglobin 8.2 g/dL (14.0-18.0); Mean Corpuscular HGB Conc 31.9 g/dl (32-36); Mean Corpuscular Hemoglobin 29.9 pg (26-34); Mean Corpuscular Volume 93.8 fl (80-100); Mean Platelet Volume 8.1 fl (7.4-10.4); Platelet Count Result 322 k/mm3 (150-375); Red Blood Count 2.74 M/mm3 (4.6-6.20); Red Cell Distribution Width 13.7 % (11.5-14.5); White Blood Count 6.4 K/mm3 (4.5-10.0)
[2023-11-02 05:48] LABS: Alanine Aminotransferase 23 U/L (6-50); Albumin Level 3.5 g/dL (3.5-5.1); Alkaline Phosphatase 54 U/L (38-126); Anion Gap 7 mmol/L (4-12); Aspartate Amino Transferase 28 U/L (17-59); Bilirubin,Total 0.4 mg/dL (0.2-1.3); Blood Urea Nitrogen 12 mg/dL (9-20); Calcium 9.5 mg/dL (8.4-10.2); Carbon Dioxide 23 mmol/L (22-30); Chloride 106 mmol/L (98-107); Estimated CRCL calculation 75 ml/min; Estimated Glomerular Filt Rate > 60; Glucose 106 mg/dL (65-110); Potassium 4.1 mmol/L (3.4-5.0); Sodium 136 mmol/L (137-145)
--- NOTE | 2023-11-02 08:52 | PM.IMPN ---
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 Reviewed the report Hold anticoagulant for 3 days. The risk versus benefit of holding the anticoagulants explained to the patient family. Patient wants to decide whether continuing the anticoagulants with special procedures tech. Target hemoglobin 7 #Atrial fibrillation Hold Xarelto Reviewed risk versus benefit of holding Xarelto to the patient and the POA Carvedilol 3.125 b.i.d., hold if heart rate is less than 60 Currently holding Coreg due to low HR and doesnt want to mask the sx of anemia Consulted cardiology Subjective Date/time seen: 11/02/23 08:52 Interval history: Patient was evaluated at the bedside. Patient under went colonoscopy and upper endoscopy . Please refer the official report. Patient hemoglobin stable around 8. Advised to hold blood thinner for another 3 days because of the recent polypectomy. Patient family still not yet decided whether to continue or discontinue the blood thinner after the 3 days. They want to discuss with the special procedures tech and decide. Review of Systems Review of Systems: All systems reviewed & are unremarkable except as noted in HPI and below Exam Narrative: General appearance: Well-developed, well-nourished Skin: Normal color Head: Normocephalic, nontraumatic Eyes: Clear conjunctiva ENT: Oropharynx normal, ears normal, nose normal Neck: Supple, nontender Chest and respiratory: Airway patent, no respiratory distress, no accessory muscle use Heart: irregular irregularity Abdomen: Soft, nontender, no organomegaly, quiet bowel sounds Vascular: Normal peripheral pulses, normal capillary refill. Musculoskeletal: Normal range of motion, nontender back Neurologic: Alert and oriented ?3, HEELER MACHINE is normal as tested, no gross motor deficit Objective Data Vital Signs Vital Signs: Vital Signs - 24 hr 11/01/23 14:30 11/01/23 12:00 11/01/23 16:00 Temperature 98.4 F Pulse Rate 66 64 64 Respiratory Rate 16 Blood Pressure 110/65 Pulse Oximetry 100 Oxygen Delivery 11/01/23 20:31 11/01/23 20:00 11/01/23 22:22 Temperature 97.0 F L Pulse Rate 66 82 83 Respiratory Rate 20 Blood Pressure 119/56 L Pulse Oximetry 100 Oxygen Delivery 11/02/23 00:00 11/02/23 04:00 11/02/23 06:05 Temperature 97.1 F L Pulse Rate 68 55 L 103 H Respiratory Rate 20 Blood Pressure 124/65 Pulse Oximetry 100 Oxygen Delivery 11/02/23 07:57 11/02/23 08:42 Temperature Pulse Rate 52 L Respiratory Rate Blood Pressure Pulse Oximetry Oxygen Delivery Room Air Intake/Output Intake/Output: Intake & Output 10/30/23 10/31/23 11/01/23 11/02/23 23:59 23:59 23:59 23:59 Intake Total 1680 930 Output Total 3 Balance 1680 930 -3 Meds/Results Medications: Active Medications Generic Name Dose Route Start Last Admin Trade Name Freq PRN Reason Stop Dose Admin Acetaminophen 650 mg 10/31/23 06:08 Acetaminophen 325 Mg Tablet PO Q4H PRN Mild Pain (1-3) or Fever Al Hydrox/Mg Hydrox/Simethicone 30 ml 10/31/23 06:08 Mag Hydrox/Al Hydrox/Simeth 30 Ml Udc PO QID PRN Dyspepsia Carvedilol 3.12
--- NOTE | 2023-11-02 14:22 | PC.NURSE ---
Patient off of unit to GI lab
[2023-11-02] MEDS: LACTATED RINGERS 1,000 ML 150 ML IV CONT (14:23)
--- NOTE | 2023-11-02 14:36 | WPDANESEPPF ---
Anes - Initial Pre Proc Eval Procedure: Operation Date: 11/02/23 15:30 Proposed Procedures p Esophagogastroduodenoscopy & Colonoscopy - Lizandro Hernandes MD Date/Time: 11/02/23 14:36 Surgeon: Ann To MD Pre Op Diagnosis: Anemia Patient Data Age: 73 Gender: M Height: 1.8 m Weight: 67.1 kg Last Vital Signs Temp 97.5 F L 11/02/23 14:26 Pulse 83 11/02/23 14:26 Resp 20 11/02/23 14:26 BP 138/84 11/02/23 14:26 Pulse Ox 97 11/02/23 14:26 O2 Del Method Room Air 11/02/23 14:26 Allergies Allergy/AdvReac Type Severity Reaction Status Date / Time No Known Allergies Allergy Verified 10/30/23 11:03 Home Medications Medication Instructions Recorded Confirmed Type amlodipine 2.5 mg tablet 2.5 mg DAILY 11/27/21 10/31/23 History carvedilol 3.125 mg tablet 3.125 mg BID 11/27/21 10/31/23 History duloxetine 30 mg capsule,delayed 30 mg PO DAILY 11/27/21 10/31/23 History release nortriptyline 25 mg capsule 25 mg DAILY 11/27/21 10/31/23 History rivaroxaban 20 mg tablet (Xarelto) 20 mg DAILY 11/27/21 10/31/23 History Laboratory Tests 11/01/23 11/02/23 16:58 05:29 WBC 6.4 K/mm3 (4.5-10.0) RBC 2.74 L M/mm3 (4.6-6.20) Hgb 8.3 L g/dL 8.2 L g/dL (14.0-18.0) (14.0-18.0) Hct 25.3 L % 25.7 L % (42.0-52.0) (42.0-52.0) MCV 93.8 fl (80-100) MCH 29.9 pg (26-34) MCHC 31.9 L g/dl (32-36) RDW 13.7 % (11.5-14.5) Plt Count 322 k/mm3 (150-375) MPV 8.1 fl (7.4-10.4) Sodium 136 L mmol/L (137-145) Potassium 4.1 mmol/L (3.4-5.0) Chloride 106 mmol/L (98-107) Carbon Dioxide 23 mmol/L (22-30) Anion Gap 7 mmol/L (4-12) BUN 12 mg/dL (9-20) Creatinine 0.70 mg/dL (0.7-1.3) Estim Creat Clear Calc 75 ml/min Estimated GFR > 60 (59 - ) Glucose 106 mg/dL (65-110) Calcium 9.5 mg/dL (8.4-10.2) Total Bilirubin 0.4 mg/dL (0.2-1.3) AST 28 U/L (17-59) ALT 23 U/L (6-50) Alkaline Phosphatase 54 U/L (38-126) Total Protein 6.0 L g/dL (6.3-8.2) Albumin 3.5 g/dL (3.5-5.1) Patient hx anesthesia problems: none Family hx anesthesia problems: none Results Review: All pre-operative results and documents have been reviewed as part of the pre-operative evaluation. [facility] Past Medical History Medical History Acute blood loss anemia Arthritis Atrial fibrillation Blood thinned due to long-term anticoagulant use Depression Hearing loss Hypertension Orthostatic hypotension Rectal bleeding Surgical History Surgical History History of appendectomy 2010 Family History Family History Father Cerebrovascular accident Mother Cancer Other Arthritis Depression Diabetes mellitus HLD (hyperlipidemia) Heart disease Hypertension Social History Social History Smoking status: Never smoker Alcohol intake: former Substance use: never Substance use type: does not use Do You Feel Safe in your Home?: Yes Lack of Transportation: No Lack of Food: Never True Current Housing: I Have Housing Concerned About Future Housing: No Difficulty Paying Gas/Electric Bills: No Difficulty Paying for Meds: No Currently Unemployed: No Education: High School Diploma/GED Difficulty w/ Childcare or Family Care: No Occupation/Education: occupation Gender identity (if verbalized by the patient): Male Spiritual care concerns: No Anes - Eval Final PreProcedure Day of Procedure 11/02/23 14:36 Patient weight: normal and cachectic Heart: irregular rhythm Lungs: clear to auscultation Airway: Mallampati scale
--- NOTE | 2023-11-02 15:53 | SUR.OPER ---
EGD START 1520, END 1523 COLONOSCOPY START 1527, END 1540
--- NOTE | 2023-11-02 18:49 | PM.CNCAR ---
Assessment and Plan Assessment and plan (1) Atrial fibrillation: Code(s): I48.91 - Unspecified atrial fibrillation Status: Acute Assessment and Plan: [id number] 3. Rate is controlled on Coreg. Discuss anticoagulation including going on Eliquis 2.5 mg BID (low dose) to decrease risk of bleeding and outpatient referral to EP for Watchman device. And they would like to go with this. GI would like him off anticoagulation for 3 days for today's polypectomy. Start Eliquis in 3 days. June d/c home from cardiology standpoint and F/U with me in 1 week. (2) Hypertension: Code(s): I10 - Essential (primary) hypertension Status: Acute Assessment and Plan: Stable. (3) Rectal bleeding: Code(s): K62.5 - Hemorrhage of anus and rectum Status: Acute Assessment and Plan: Stable. Probably related to anticoagulation with Xarelto 20 mg daily. History of Present Illness History of Present Illness Consult date/time: 11/02/23 18:49 Reason For Visit: Anemia Narrative: 73 yr old man presented to hospital for GI bleed. He has a history of atrial fibrillation for 10 years, hypertension. He used to see Dr. Malcolm until she retired. Daughter is at bedside. He had GI bleed with blood noted in toilet, Hb was as low as 6.7 gm, received 1 unit PRBC, and had endoscopy today with no evidence of GI bleed but did get polyp biopsied. The reason for consult is anticoagulation. He can normally walk a couple of blocks and limited by knee pain and NUNO. Denies chest pain, sob, orthopnea, PND, edema, dizziness, palpitations. Review of Systems Review of Systems: All systems reviewed & are unremarkable except as noted in HPI and below Constitutional: Constitutional: Reports as per HPI, Denies chills, Reports fatigue and Denies fever(s) Cardiovascular: Cardiovascular: Reports as per HPI, Denies chest pain and Denies irregular heart rhythm Respiratory: Respiratory: Reports as per HPI and Denies dyspnea Gastrointestinal: Gastrointestinal: Reports as per HPI and Denies abdominal pain Genitourinary: Genitourinary: Reports as per HPI and Denies dysuria Musculoskeletal: Musculoskeletal: Reports as per HPI and Reports arthralgias Neurologic: Reports as per HPI, Denies dizziness and Denies syncope [facility] Past Medical History Medical History (Updated 11/02/23 @ 18:54 by Miguel Warner DO) Acute blood loss anemia Arthritis Atrial fibrillation Blood thinned due to long-term anticoagulant use Depression Hearing loss Hypertension Orthostatic hypotension Rectal bleeding Surgical History Surgical History History of appendectomy 2010 Family History Family History Father Cerebrovascular accident Mother Cancer Other Arthritis Depression Diabetes mellitus HLD (hyperlipidemia) Heart disease Hypertension Social History Social History Smoking status: Never smoker Alcohol intake: former Substance use: never Substance use type: does not use Do You Feel Safe in your Home?: Yes Lack of Transportation: No Lack of Food: Never True Current Housing: I Have Housing Concerned About Future Housing: No Difficulty Paying Gas/Electric Bills: No Difficulty Paying for Meds: No Currently Unemployed: No Education: High School Diploma/GED Difficulty w/ Childcare or Family Care: No Occupation/Education: occupation Gender identity (if verbalized by the patient): Male Spiritual care concerns: No Meds Home Medications and Allergies Home Medications Medication Instructions Recorded Confirmed Type amlodipine 2.5 mg tablet 2.5 mg DAILY 11/27/21 10/31/23 History carvedilol 3.125 mg tablet 3.125 mg BID 11/27/21 10/31/23 History duloxetine 30 mg capsule,delayed 30 mg PO DAILY 11/27/21 10/31/23 Hi
[2023-11-02] MEDS: NORTRIPTYLINE HCL 25 MG CAPSULE PO (20:49)
[2023-11-02] MEDS: DULoxetine HCL 30 MG CAPSULE.DR PO (20:49)
[2023-11-02] MEDS: carvediloL 3.125 MG TABLET PO (20:50)
[2023-11-03] VITALS (8 sets, daily range): BP systolic 116–120; BP diastolic 51–65; PULSE 55–81; RESP 16; TEMP 36.3; O2SAT 94–98
[2023-11-03 05:53] LABS: Hematocrit 24.5 % (42.0-52.0); Hemoglobin 7.7 g/dL (14.0-18.0); Mean Corpuscular HGB Conc 31.4 g/dl (32-36); Mean Corpuscular Hemoglobin 29.6 pg (26-34); Mean Corpuscular Volume 94.2 fl (80-100); Mean Platelet Volume 8.1 fl (7.4-10.4); Platelet Count Result 288 k/mm3 (150-375); Red Cell Distribution Width 13.7 % (11.5-14.5); White Blood Count 5.7 K/mm3 (4.5-10.0)
[2023-11-03 06:12] LABS: Alanine Aminotransferase 19 U/L (6-50); Albumin Level 2.9 g/dL (3.5-5.1); Alkaline Phosphatase 51 U/L (38-126); Anion Gap 6 mmol/L (4-12); Aspartate Amino Transferase 21 U/L (17-59); Bilirubin,Total 0.3 mg/dL (0.2-1.3); Blood Urea Nitrogen 18 mg/dL (9-20); Calcium 8.7 mg/dL (8.4-10.2); Carbon Dioxide 24 mmol/L (22-30); Chloride 106 mmol/L (98-107); Estimated CRCL calculation 75 ml/min; Estimated Glomerular Filt Rate > 60; Glucose 96 mg/dL (65-110); Potassium 3.7 mmol/L (3.4-5.0); Sodium 136 mmol/L (137-145)
--- NOTE | 2023-11-03 08:00 | PM.PNCARD ---
Progress Note: A&P Assessment and Plan (1) Atrial fibrillation: Code(s): I48.91 - Unspecified atrial fibrillation Status: Acute Assessment and Plan: [id number] 3. Rate is controlled on Coreg. Discuss anticoagulation including going on Eliquis 2.5 mg BID (low dose) to decrease risk of bleeding and outpatient referral to EP for Watchman device. And they would like to go with this. GI would like him off anticoagulation for 3 days for today's polypectomy. Start Eliquis in 3 days. Hb decreased to 7.7 gm today. If OK with GI, may d/c home from cardiology standpoint and F/U with me in 1 week. (2) Hypertension: Code(s): I10 - Essential (primary) hypertension Status: Acute Assessment and Plan: Stable. (3) Rectal bleeding: Code(s): K62.5 - Hemorrhage of anus and rectum Status: Acute Assessment and Plan: Stable. Probably related to anticoagulation with Xarelto 20 mg daily. Subjective Date/time seen: 11/03/23 08:00 Interval history: No chest pain or sob. Exam Const: General: cooperative, healthy appearing and comfortable Orientation/consciousness: oriented to person, oriented to place and oriented to time Resp: Auscultation: clear to auscultation bilaterally, no crackles, no rales, no rhonchi and no wheezes Cardio: Rate: regular rate Rhythm: abnormal rhythm Heart sounds: no murmurs Peripheral pulses: dorsalis pedis present Neuro: General: oriented to person, oriented to place and oriented to time Extrem: Right lower extremity: no edema Left lower extremity: no edema Objective Data Vital Signs Vital Signs: Vital Signs - 24 hr 11/02/23 08:42 11/02/23 12:00 11/02/23 13:24 Temperature Pulse Rate 63 Respiratory Rate Blood Pressure Pulse Oximetry Oxygen Delivery Room Air Room Air 11/02/23 14:26 11/02/23 15:40 11/02/23 15:50 Temperature 97.5 F L Pulse Rate 83 72 68 Respiratory Rate 20 16 18 Blood Pressure 138/84 113/68 116/61 Pulse Oximetry 97 97 100 Oxygen Delivery Room Air Room Air Room Air 11/02/23 16:00 11/02/23 20:00 11/02/23 20:50 Temperature Pulse Rate 56 L 63 70 Respiratory Rate 18 Blood Pressure 132/55 L Pulse Oximetry 100 Oxygen Delivery Room Air 11/02/23 20:00 11/02/23 20:51 11/03/23 00:00 Temperature 97.5 F L Pulse Rate 76 63 Respiratory Rate 18 Blood Pressure 110/52 L Pulse Oximetry 96 Oxygen Delivery Room Air 11/03/23 04:00 11/03/23 05:59 Temperature 97.4 F L Pulse Rate 63 55 L Respiratory Rate 16 Blood Pressure 116/65 Pulse Oximetry 94 Oxygen Delivery Intake/Output Intake/Output: Intake & Output 10/31/23 11/01/23 11/02/23 11/03/23 23:59 23:59 23:59 23:59 Intake Total 1680 930 790 300 Output Total 3 Balance 1680 930 787 300 Meds/Results Medications: Active Medications Generic Name Dose Route Start Last Admin Trade Name Freq PRN Reason Stop Dose Admin Acetaminophen 650 mg 10/31/23 06:08 Acetaminophen 325 Mg Tablet PO Q4H PRN Mild Pain (1-3) or Fever Al Hydrox/Mg Hydrox/Simethicone 30 ml 10/31/23 06:08 Mag Hydrox/Al Hydrox/Simeth 30 Ml Udc PO QID PRN Dyspepsia Apixaban 2.5 mg 11/05/23 09:00 Apixaban 2.5 Mg Tablet PO Q12HR DOROTHY Carvedilol 3.125 mg 10/31/23 10:10 11/02/23 20:50 Carvedilol 3.125 Mg Tablet PO 3.125 mg Q12HR DOROTHY Administration Duloxetine HCl 30 mg 10/31/23 21:00 11/02/23 20:49 Duloxetine Hcl 30 Mg Capsule.Dr PO 30 mg 2100 DOROTHY Administration Magnesium Hydroxide 30 ml 10/31/23 06:08 Magnesium Hydroxide Susp 30 Ml Udc PO DAILY PRN Constipation Nortriptyline HCl 25 mg 10/31/23 21:00 11/02/23 20:49 Nortriptyline Hcl 25 Mg Capsule PO 25 mg HS DOROTHY Administration Ondansetron HCl 4 mg 10/31/23 06:08 Ondansetron Inj 4 Mg/2 Ml Vial IV PUSH Q6H PRN Nausea And Vomiting Labs Labs: Laboratory Results - last 24 hr 11/02
[2023-11-03] MEDS: carvediloL 3.125 MG TABLET PO (08:31)
[2023-11-03 08:59] LABS: Iron 16 ug/dL (49-181)
[2023-11-03 09:09] LABS: Percent Iron Saturation 4 % (20-50)
[2023-11-03 09:35] LABS: Ferritin 5.49 ng/mL (11.1-264)
[2023-11-03 10:10] LABS: Hematocrit 27.2 % (42.0-52.0); Hemoglobin 8.6 g/dL (14.0-18.0); Mean Corpuscular HGB Conc 31.6 g/dl (32-36); Mean Corpuscular Hemoglobin 30.2 pg (26-34); Mean Corpuscular Volume 95.4 fl (80-100); Mean Platelet Volume 8.5 fl (7.4-10.4); Platelet Count Result 349 k/mm3 (150-375); Red Blood Count 2.85 M/mm3 (4.6-6.20); Red Cell Distribution Width 13.7 % (11.5-14.5); White Blood Count 5.9 K/mm3 (4.5-10.0)
[2023-11-03] MEDS: IRON SUCROSE COMPLEX 400 MG, IRON SUCROSE COMPLEX 100 MG in SODIUM CHLORIDE 0.9% IV 250 ML 78.57 MG IVPB (12:01)
--- NOTE | 2023-11-03 13:28 | WPDANESPN ---
Anes - Prog Note Post-Op Date/Time: 11/03/23 13:28 Cardiovascular status: normal Respiratory status: normal Airway patency: baseline Mental status: baseline Post-Op hydration status: normal Vital Signs: Last Vital Signs Temp 36.3 C L 11/03/23 05:59 Pulse 67 11/03/23 08:31 Resp 16 11/03/23 08:00 BP 116/65 11/03/23 05:59 Pulse Ox 94 11/03/23 08:00 O2 Del Method Room Air 11/03/23 08:00 Pain Score (VAS): 0/10 I/O: Intake & Output 11/02/23 11/03/23 11/03/23 23:59 07:59 15:59 Intake Total 240 300 480 Balance 240 300 480 Laboratory Tests 11/03/23 10:05 11/03/23 05:40 11/03/23 11/03/23 11/03/23 05:37 05:40 10:05 WBC 5.7 5.9 RBC 2.60 L 2.85 L Hgb 7.7 L 8.6 L Hct 24.5 L 27.2 L MCV 94.2 95.4 MCH 29.6 30.2 MCHC 31.4 L 31.6 L RDW 13.7 13.7 Plt Count 288 349 MPV 8.1 8.5 Sodium 136 L Potassium 3.7 Chloride 106 Carbon Dioxide 24 Anion Gap 6 BUN 18 Creatinine 0.70 Estim Creat Clear Calc 75 Estimated GFR > 60 Glucose 96 Calcium 8.7 Iron 16 L TIBC 380 % Saturation 4 L Ferritin 5.49 L Total Bilirubin 0.3 AST 21 ALT 19 Alkaline Phosphatase 51 Total Protein 5.0 L Albumin 2.9 L Post-procedural complaints: none Patient Feedback: Patient satisfied with anesthetic care.
--- NOTE | 2023-11-03 16:42 | PM.DS ---
DS: Admitting Diagnosis Discharge Date 11/03/2023 Admitting Diagnosis Gi bled DS: Summary Hospital Course Hospital Course: Patient is a 73-year-old gentleman with past medical history of AFib admitted due to GI bleed. Patient daughter was at the bedside during the examination was able to give the history says since patient has some hearing issues. As per his daughter patient lives in a home, walks by himself without any assistance but patient has advanced OA of BL knee and pending knee replacement. Denies any heart surgery, stroke or any kidney disease. Patient daughter routinely checks on him but past 1 week she was not able to come to his house. Patient reported to his daughter that his diastolic pressure is not coming up above 40. Patient daughter works at [employer] [place] who went to his house to check. She noted blood in his toilet bowl. She was trying to check his heart rate through the pulse ox but it ranges between 52-205. The blood pressure at the time was 110/ 60. She brought him to [facility] [place]. Initial hemoglobin was 7.3 but the repeat was 6.7 and 1 unit of packed RBC was transfused. Later patient was transferred to [facility]. Pending GI evaluation. In the meantime we are holding Xarelto. Explained to the patient and his daughter risk versus benefit of stopping Xarelto. Both completely understands and wants Xarelto to be stopped. Repeat hemoglobin has been ordered. Currently patient is resting well in the bed with no signs of distress. EGD unremarkable, colonoscopy showed internal hemorrhoids. GI and Cardiology recommended holding anticoagulation for 3 days. Consider recommended an increase to 0.5 mg b.i.d.. The follow-up outpatient for Watchman device evaluation. 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, left knee Status: Acute (4) Right knee DJD: Qualifiers: Osteoarthritis type: primary Qualified Code(s): M17.11 - Unilateral primary osteoarthritis, right knee Code(s): M17.11 - Unilateral primary osteoarthritis, right knee Status: Acute (5) Atrial fibrillation: Code(s): I48.91 - Unspecified atrial fibrillation Status: Acute Plan #GI Bleed Hemoglobin 13.18 Jun 2022 Transfused 1 unit at [place] Hb 8.7 today Isat is 4, patient given 500mg venofer and discharged on PO iron F/u wtih GI as instrucetd #Atrial fibrillation Xarelto discontineud Continue home rate controled Discharged on Eliquis 2.5mg bid ci patient will restart on 11/06/2023 per cardiology adn GI for outpatient watchman device eval F/u with PCP in 3-5 days, adn cardiology as intructed Time Spent with Patient Time attestation: Total time spent providing and/or coordinating discharge services: DS: Data Data Completed and Pending Pending studies at discharge: Pending at discharge 11/02/23 15:41 Surgical [PTH] Routine Labs on day of discharge: Labs from last 24 hours 11/03/23 11/03/23 11/03/23 10:05 05:40 05:37 WBC 5.9 5.7 RBC 2.85 L 2.60 L Hgb 8.6 L 7.7 L Hct 27.2 L 24.5 L MCV 95.4 94.2 MCH 30.2 29.6 MCHC 31.6 L 31.4 L RDW 13.7 13.7 Plt Count 349 288 MPV 8.5 8.1 Sodium 136 L Potassium 3.7 Chloride 106 Carbon Dioxide 24 Anion Gap 6 BUN 18 Creatinine 0.70 Estim Creat Clear Calc 75 Estimated GFR > 60 Glucose 96 Calcium 8.7 Iron 16 L TIBC 380 % Saturation 4 L Ferritin 5.49 L Total Bilirubin 0.3 AST 21 ALT 19 Alkaline Phosphatase 51 Total Protein 5.0 L Albumin 2.9 L Discharge Plan Discharge Attending physician on discharge: Merrick Humphrey Consulting providers: Lizandro Hernandes;
== END 2023-11-03 17:23 | disposition home or self-care (01) | DRG 813 ==
PROVIDERS: General Practice; Internal Medicine Gastroenterology; Admitting Provider Internal Medicine; PCP Internal Medicine; Visit Provider Internal Medicine
PROC: 0DJ08ZZ Inspection of Upper Intestinal Tract, Via Natural or Artificial Opening Endoscopic (ICD-10-PCS; CPT 43235; principal; 2023-11-02 15:30)
DX: D68.32 Hemorrhagic disorder due to extrinsic circulating anticoagulants (principal); K92.2 Gastrointestinal hemorrhage, unspecified; D62 Acute posthemorrhagic anemia; R64 Cachexia; T45.515A Adverse effect of anticoagulants, initial encounter; Z79.01 Long term (current) use of anticoagulants; I48.91 Unspecified atrial fibrillation; K57.30 Diverticulosis of large intestine without perforation or abscess without bleeding; K63.5 Polyp of colon; K64.8 Other hemorrhoids; M17.0 Bilateral primary osteoarthritis of knee; I95.1 Orthostatic hypotension; M19.90 Unspecified osteoarthritis, unspecified site; I10 Essential (primary) hypertension; Z90.49 Acquired absence of other specified parts of digestive tract; Z68.20 Body mass index [BMI] 20.0-20.9, adult
CPT/HCPCS: 36415; 80048; 80053; 82728; 83540; 83550; 85014; 85018; 85025; 85027; 85610; 85730; 88305; 97161; 97165; A9270; G0378; J1756; J2704; J7030; J7050; J7120

== ENCOUNTER 2023-11-12 11:41 | Outpatient (CLI) | payer MEDICARE, SELFPAY ==
[2023-11-12 12:09] LABS: Basophils Absolute Auto 0.04 K/mm3 (0.00-0.10); Basophils Percent Auto 0.6 % (0.0-1.0); Eosinophils Absolute Auto 0.06 K/mm3 (0.02-0.50); Eosinophils Percent Auto 0.9 % (1.0-6.0); Hematocrit 29.5 % (37.0-46.0); Hemoglobin 9.3 g/dL (12.4-15.3); Immature Granulocyte Absolute 0.03 K/mm3 (0.00-0.00); Immature Granulocyte Percent A 0.5 % (0.0-0.0); Lymphocytes Absolute Auto 1.32 K/mm3 (1.10-4.50); Lymphocytes Percent Auto 20.2 % (18.0-42.0); Mean Corpuscular HGB Conc 31.5 g/dL (32-36); Mean Corpuscular Hemoglobin 29.5 pg (27.0-31.0); Mean Corpuscular Volume 93.7 fL (78.0-102.0); Mean Platelet Volume 8.1 fl (8.7-11.0); Monocytes Absolute Auto 0.49 K/mm3 (0.10-0.90); Monocytes Percent Auto 7.5 % (2.0-11.0); Neutrophils Absolute Auto 4.61 K/mm3 (1.70-7.20); Neutrophils Percent Auto 70.3 % (50.0-70.0); Platelet Count Result 296 K/mm3 (150-420); Red Blood Count 3.15 M/mm3 (4.70-6.10); Red Cell Distribution Width 16.7 % (11.6-14.4); White Blood Count 6.6 K/mm3 (4.8-10.8)
[2023-11-12 13:04] LABS: Alanine Aminotransferase 28 U/L (16-63); Albumin Level 3.6 g/dL (3.4-5.0); Alkaline Phosphatase 66 U/L (46-116); Anion Gap 8 mmol/L (4-12); Aspartate Amino Transferase 14 U/L (15-37); Bilirubin,Total 0.4 mg/dL (0.00-1.00); Blood Urea Nitrogen 32 mg/dL (7-18); Calcium 9.5 mg/dL (8.5-10.1); Carbon Dioxide 28 mmol/L (21-32); Chloride 103 mmol/L (98-108); Estimated Glomerular Filt Rate > 60; Glucose 96 mg/dL (70-99); NT Pro B Type Natriuretic Pept 535 pg/mL (0-450); Osmolality Calculated 294 mOsm/kg (285-295); Potassium 4.8 mmol/L (3.5-5.1); Sodium 139 mmol/L (136-145); Total Protein 6.2 g/dL (6.4-8.2)
== END 2023-11-12 11:42 | disposition home or self-care (01) ==
LOC: CHSLAB 11:44
PROVIDERS: PCP Internal Medicine; Visit Provider Internal Medicine
DX: R06.00 Dyspnea, unspecified (principal); K92.2 Gastrointestinal hemorrhage, unspecified
CPT/HCPCS: 36415; 80053; 83880; 85025

== ENCOUNTER 2023-12-07 09:00 | Outpatient (CLI) | payer MEDICARE, SELFPAY ==
[2023-12-07 09:16] LABS: Basophils Absolute Auto 0.03 K/mm3 (0.00-0.10); Basophils Percent Auto 0.6 % (0.0-1.0); Eosinophils Absolute Auto 0.09 K/mm3 (0.02-0.50); Eosinophils Percent Auto 1.9 % (1.0-6.0); Hematocrit 36.4 % (37.0-46.0); Hemoglobin 11.6 g/dL (12.4-15.3); Immature Granulocyte Absolute 0.01 K/mm3 (0.00-0.00); Immature Granulocyte Percent A 0.2 % (0.0-0.0); Lymphocytes Absolute Auto 1.66 K/mm3 (1.10-4.50); Lymphocytes Percent Auto 34.7 % (18.0-42.0); Mean Corpuscular HGB Conc 31.9 g/dL (32-36); Mean Corpuscular Hemoglobin 30.1 pg (27.0-31.0); Mean Corpuscular Volume 94.5 fL (78.0-102.0); Mean Platelet Volume 8.3 fl (8.7-11.0); Monocytes Absolute Auto 0.46 K/mm3 (0.10-0.90); Monocytes Percent Auto 9.6 % (2.0-11.0); Neutrophils Absolute Auto 2.54 K/mm3 (1.70-7.20); Platelet Count Result 330 K/mm3 (150-420); Red Blood Count 3.85 M/mm3 (4.70-6.10); Red Cell Distribution Width 17.9 % (11.6-14.4); White Blood Count 4.8 K/mm3 (4.8-10.8)
[2023-12-07 10:10] LABS: Alanine Aminotransferase 28 U/L (16-63); Albumin Level 3.7 g/dL (3.4-5.0); Alkaline Phosphatase 79 U/L (46-116); Anion Gap 7 mmol/L (4-12); Aspartate Amino Transferase 17 U/L (15-37); Bilirubin,Total 0.4 mg/dL (0.00-1.00); Blood Urea Nitrogen 27 mg/dL (7-18); Calcium 9.7 mg/dL (8.5-10.1); Carbon Dioxide 30 mmol/L (21-32); Chloride 104 mmol/L (98-108); Estimated Glomerular Filt Rate > 60; Glucose 123 mg/dL (70-99); NT Pro B Type Natriuretic Pept 725 pg/mL (0-450); Osmolality Calculated 298 mOsm/kg (285-295); Potassium 4.4 mmol/L (3.5-5.1); Sodium 141 mmol/L (136-145); Total Protein 6.5 g/dL (6.4-8.2)
== END 2023-12-07 09:01 | disposition home or self-care (01) ==
LOC: CHSLAB 09:03
PROVIDERS: PCP Internal Medicine; Visit Provider Internal Medicine
DX: D64.9 Anemia, unspecified (principal); K92.2 Gastrointestinal hemorrhage, unspecified; I48.91 Unspecified atrial fibrillation
CPT/HCPCS: 36415; 80053; 83880; 85025

== ENCOUNTER 2024-03-18 19:24 | Emergency (ER) | payer MEDICARE, SELFPAY ==
--- OUTSIDE RECORDS SUMMARY | 2024-03-18 19:26 | XMS_ITS | Encounter Summary ---
Author Organization [facility] Address [address] [place] [address]. [place], [place] [id number] [place] [id number] Care Team Providers Care Legal File Clerk Name Role Phone Dalton Gonsales MD Primary Care Provider [phone] Miguel Warner DO Unavailable Encounter Details Date Type Department Care Team (Late st Contact Info) Description 01/01/2024 Pre-Procedure Call [facility] [place] [address] Tomi Celaya MD [facility]. [address] [address] Social History Tobacco Use Types Packs/Day Years Used Date Smoking Tobacco: Former Cigarettes 0.5 6 1 968 - 7565 Smokeless Tobacco: Never Alcohol Use Standard Drinks/Week Comments Never 0 (1 standard drink = 0.6 oz pur e alcohol) Sex and Gender Information Value Date Recorded Sex Assigned at Not on file Legal Sex Male 1:06 PM CDT Gender Identity Not on file Sexual Orientation Not on file documented as of this encounter Plan of Treatment Upcoming Encounters Date Type Department Care Team (Late Contact Info) Description 03/30/2024 1:00 PM [employer]ER Appointment [facility] [place], [place] [address] Tomi Celaya MD Three [facility]. [address] [address] 07/14/2024 10:00 AM CDT Office Visit [facility], [address] [place] [address] Claire Lang PA [address] [facility] [address] [place] [address] documented as of this encounter Visit Diagnoses Not on filedocumented in this encounter Care Teams Legal File Clerk Relationship Specialty Start Date End Date Dalton Gonsales MD [address] [place] [address] PCP - General INTERNAL MEDICINE 12/31/23 Miguel Warner DO [address] [facility] [address] [place] [address] INTERNAL MEDICINE 12/31/23 documented as of this encounter
--- OUTSIDE RECORDS SUMMARY | 2024-03-18 19:26 | XMS_ITS | Clinical Summary ---
Author Organization [facility] Address [address] [place] [address]. [place], [place] [address] [place] [address] Care Team Providers Care Sheriffs Name Role Phone Dalton Gonsales MD Primary Care Provider [phone] Miguel Warner DO Unavailable Allergies No known active allergies Medications carvedilol (COREG) 3.125 MG tablet Take 1 tablet (3.125 mg total) by mouth 2 (two) times daily. 12/27/2023 Active nortriptyline (PAMELOR) 25 MG capsule Take 1 capsule (25 mg total) by mouth daily. 12/05/2023 Active apixaban (ELIQUIS) 2.5 MG tablet Take 1 tablet (2.5 mg total) by mouth 2 (two) times daily. Active aspirin EC (ECOTRIN) 81 MG tablet Take 1 tablet (81 mg total) by mouth daily. 30 tablet 3 01/08/2024 Active Active Problems Problem Noted Date Diagnosed Date Atrial fibrillation (CMS/HCC HHS/HCC) HTN (hypertension) H/O: GI bleed Orthostatic hypotension Encounters Date Type Department Care Team Description 03/17/2024 Telephone [facility] [address] [address] Cheikh Cortes MD Information ([facility], Miguel Warner DO) 02/16/2024 10:30 AM OFFICE ASSISTANCE Office Visit [facility], [address] [address] [phone] Claire Lang PA Atrial Fibrillation (Follow up) 02/16/2024 Travel 02/03/2024 Orders Only [facility] [address] [address] Cheikh Cortes MD 01/08/2024 10:31 AM OFFICE ASSISTANCE Anesthesia Event [facility] [place] [address] Florentino Luis MD Jarvis, Brittany L, SHOP SERVICE TECHNICIAN 01/08/2024 9:28 AM OFFICE ASSISTANCE - 01/08/2024 3:50 PM OFFICE ASSISTANCE Hospital Encounter [facility] [place] [address] Cheikh Cortes MD Morcos, Ehab S, MD Discharge Disposition: Home or Self Care (Routine Discharge) 01/08/2024 9:27 AM OFFICE ASSISTANCE Hospital Encounter [facility] [place] [address] Cheikh Cortes MD Discharge Disposition: Home or Self Care (Routine Discharge) 01/08/2024 Travel 01/07/2024 Prep for Procedure [facility] [place] [address] Cheikh Cortes MD 01/06/2024 Orders Only [facility] [place] [address] Cheikh Cortes MD 01/01/2024 Pre-Procedure Call [facility] [place] [address] Cheikh Cortes MD 01/01/2024 Pre-Procedure Call [facility] [place] [address] Cheikh Cortes MD Preprocedure Call (Watchman pre-op eval call) 12/31/2023 10:30 AM OFFICE ASSISTANCE Office Visit [facility], [address] [address] Cheikh Cortes MD Atrial Fibrillation (Watchman consult) 12/31/2023 Telephone [facility], [address] [address] Cheikh Cortes MD Information 12/31/2023 Travel from Last 3 Months Family History Medical History Relation Comments Stroke Father Cancer Mother Stent Cardiac Sister Relation Status Comments Father Mother Sister Social History Tobacco Use Types Packs/Day Years Used Date Smoking Tobacco: Former Cigarettes 0.5 6 1 968 1973 Smokeless Tobacco: Never Alcohol Use Standard Drinks/Week Comments Never 0 (1 standard drink = 0.6 oz pur e alcohol) Sex and Gender Information Value Date Recorded Sex Assigned at Not on file Legal Sex Male 1:06 PM CDT Gender Identity Not on file Sexual Orientation Not on file Last Filed Vital Signs Vital Sign Reading Time Taken Comments Blood Pressure 118/70 02/16/2024 10:22 AM OFFICE ASSISTANCE Pulse 84 02/16/2024 10:22 AM OFFICE ASSISTANCE Temperature 36.8 ??C (98.2 ??F) 01/08/2024 12:15 PM C Respiratory Rate 16 01/08/2024 3:00 PM OFFICE ASSISTANCE Oxygen Saturation 98% 02/16/2024 10:22 AM OFFICE ASSISTANCE Inhaled Oxygen Concentration - - Weight 70.8 kg (156 lb) 02/16/2024 10:22 AM OFFICE ASSISTANCE Height 180.3 cm (5' 11 ) 02/16/2024 10:22 AM OFFICE ASSISTANCE Body Mass Index 21.76 02/16/2024 10:22 AM OFFICE ASSISTANCE Plan of Treatment Upcoming Encounters Date Type Department Care Team (Late st Contact Info) Description 03/30/2024 1:00 PM OFFICE ASSISTANCE [facility]ointment [facility] [place] [address] Cheikh Cortes MD Three [facility]. [address] [place], [place] [address] 07/14/2024 10:00 AM CDT Office Visit [facility], [address] [place], [place] [id number] Claire Lang PA 3 [facility] [address] [place], [place] [id number] Health Maintenance Due Date Last Done Comments Colorectal Cancer Screening Colonoscopy (10 Years) 1950 Hepatitis C 1966 DTaP, Tdap and Td Vaccines ( 1 - Tdap) 1967 Zoster Vaccines (1 of 2) 1998 AAA SCREENING 2013 Annual Medicare Wellness Visit 2013 Pneumococcal Vaccine: 65+ Ye ars (1 of 1 - PCV) 2013 RSV Immunization or 60+ Years (1 - 1-dose 75+ series) 2023 COVID-19 Vaccine ( - 2023-2 5 season) 2023 Influenza Adult (#1) 2023 Meningococcal B Vaccine Aged Out No l onger eligible based on patient's age to complete this topic Meningococcal Vaccine Aged Out No bishop colt eligible based on patient's age to complete this topic RSV Immunizations Under 20 Months Aged Out No longer eligible based on patient's age to complete this topic Medical Devices Implanted Type Area Crayon Sawyer Device Identifier Shelf Expiration Date Model / Serial / Lot Anderson Closure Device- [id number] Implanted:Qty: 1 on 01/08/2024 by Cheikh Cortes MD Closure Device SingOn 06/25/2026 / / [id number] Procedures Procedure Name Priority Date/Time Associated Diagnosis Comments USE ECHO 2D FU LTD STAT 01/08/2024 1: 39 PM OFFICE ASSISTANCE XR CHEST PORTABLE Routine 01/08/2024 12: 04 PM OFFICE ASSISTANCE ECG 12-LEAD STAT 01/08/2024 11:45 AM OFFICE ASSISTANCE Atrial fibrillation, unspecified type (CMS/HCC HHS/HCC) XA LEFT ATRIAL APPENDAGE CLOSURE Routine 01/08/2024 11:31 AM OFFICE ASSISTANCE Atrial fibrillation, unspecified type (CMS/HCC HHS/HCC) POCT ACTIVATED CLOTTING TIME - ISTAT DOCKED DEVICE Routine 01/08/2024 11:13 AM OFFICE ASSISTANCE TYPE & SCREEN Routine 01/08/2024 9:31 AM OFFICE ASSISTANCE Atrial fibrillation (CMS/HCC HHS/HCC) PROTHROMBIN TIME, VENOUS Routine 01/08/2024 9:31 AM OFFICE ASSISTANCE Atrial fibrillation (CMS/HCC HHS/HCC) BASIC METABOLIC PANEL Routine 01/08/2024 9:31 AM OFFICE ASSISTANCE Atrial fibrillation (CMS/HCC HHS/HCC) CBC W/DIFF AUTOMATED Routine 01/08/2024 9:31 AM OFFICE ASSISTANCE Atrial fibrillation (CMS/HCC HHS/HCC) MRSA SCREENING Routine 01/08/2024 9:27 AM OFFICE ASSISTANCE Atrial fibrillation (CMS/HCC HHS/HCC) from Last 3 Months Results * USE ECHO 2D FU LTD (01/08/2024 1:39 PM OFFICE ASSISTANCE) Anatomical Region Laterality Modality Cardiac Echocardiogram 01/08/2024 2:06 PM OFFICE ASSISTANCE Narrative 01/11/2024 9:01 AM OFFICE ASSISTANCE ?Echocardiography Report Pat.Name: ??ANNE, LEVON ?Pat.ID: ?[id number] ? St.Date: ?? 01/08/2024 ? Refer.MD: ??[id number], Husconstantino cheikh leone ewdprov ewdprov Exam Time: 2:06:00 PM ? Study Type:ECHO WITH CARDIAC DOPPLER COMP Height: ?71 in ? Weight: ?157 lb ? BSA: ? 1.9 m2 ?Age: ??1950,73Y ? Sex: ? M ? HR: ?51 bpm ? Sonogrphr: Veronica Awan RDCS ?Pat. Stat.:Inpatient ? Room: ?ODS30 ? Reason for Study:Post watchman ? Procedures: 2D, The study quality is technically good. Race: ?W ? ++++++++++++++++++++++++++++++++++++ SUMMARY: ++++++++++++++++++++++++++++++++++++ Trivial pericardial effusion. [place]OR[place]: ? Trivial pericardial effusion. <Electronic Signature> 01/11/2024 09:01 AM Dionne Bonilla M.D. Procedure Note Dionne Bonilla MD - 01/11/2024 Echocardiography Report Pat.Name: LEVON ANNE Pat.ID: [id number] .Date: 01/08/2024 Refer.MD: [id number], Sebastian leone ewdprov ewdprov Exam Time: 2:06:00 PM Study Type:ECHO WITH CARDIAC DOPPLER COMP Height: 71 in Weight: 157 lb BSA: 1.9 m2 Age: 2 1950,73Y Sex: M HR: 51 bpm Sonogrphr: Veronica Awan RDCS Pat. Stat.:[facility] Reason for Study:Post watchman Procedures: 2D, The study quality is technically good. Race: W ++++++++++++++++++++++++++++++++++++ SUMMARY: ++++++++++++++++++++++++++++++++++++ Trivial pericardial effusion. [place]: Trivial pericardial effusion. <Electronic Signature> 01/11/2024 09:01 AM Dionne Bonilla M.D. us Cheikh Cortes MD ECHO Final Resul t * XR CHEST PORTABLE (01/08/2024 12:04 PM OFFICE ASSISTANCE) Anatomical Region Laterality Modality Chest Radiographic Kajal ging 01/08/2024 12:5 9 PM OFFICE ASSISTANCE Impressions 01/08/2024 12:59 PM OFFICE ASSISTANCE IMPRESSION: No acute findings Ordered By: CHEIKH CORTES Interpreted By: Kevin Winn MD, 01/08/2024 12:59 PM Narrative 01/08/2024 12:59 PM OFFICE ASSISTANCE [facility] [address] [place] [address] SINGLE VIEW OF THE CHEST Clinical history: Post procedure Comparison: None A single view of the chest demonstrates the cardiac silhouette to be at the upper limits of normal in size. An occlusive device is evident within the left atrial appendage. The pulmonary vessels are normally distributed. The Lungs are clear. No consolidations or effusions are seen. Procedure Note Kevin Winn MD - 01/08/2024 [facility] [address] [place], [place] [address] SINGLE VIEW OF THE CHEST Clinical history: Post procedure Comparison: None A single view of the chest demonstrates the cardiac silhouette to be atthe upper limits of normal in size. An occlusive device is evident withinthe left atrial appendage. The pulmonary vessels are normally distributed.The Lungs are clear. No consolidations or effusions are seen. IMPRESSION: No acute findings Ordered By: CHEIKH CORTES Interpreted By: Kevin Winn MD, 01/08/2024 12:59 PM us Cheikh Cortes MD GENERAL IMAGING Final Resul t * ECG 12 lead (01/08/2024 11:45 AM OFFICE ASSISTANCE) 01/08/2024 11:4 5 AM OFFICE ASSISTANCE Narrative [facility] - 01/09/2024 3:23 PM OFFICE ASSISTANCE ?[place] ? [address] [place] ? Test Date: ?2024-01-08 Pat Name: ? LEVON ANNE ?Department: ?? 40 ? Room: ? ODS Gender: ? Male ? Counter Molder: ?? Cc : ?1950 ? Requested By: CHEIKH SEBASTIAN Order Number: [id number] ? Reading MD: ?? Shiyam Satwani ? Measurements Intervals ?[place] ? Rate: ? 79 ? P: ? [place]: ? 0 ?QRS: ?20 QRSD: ? 94 ? T: ?0 QT: ? 335 ? QTc: ?386 ? Interpretive Statements ATRIAL FIBRILLATION LOW QRS VOLTAGE IN EXTREMITY LEADS ??[QRS DEFLECTION < 0.5 mV IN LIMB LEADS] Nonspecific ST-T abnormality No previous ECG available for comparison CE ASSISTANCE Procedure Note Tamara Kwong MD - 01/09/[address] Test Date: 2024-01-08 Pat Name: LEVON ANNE Department: 40 Room: [facility] Gender: Male Counter Molder: Cc : 1950 Requested By: CHEIKH CORTES Order Number: [id number] Reading MD: Tamara Kwong Measurements Intervals [place] Rate: 79 P: [place]: 0 QRS: 20 QRSD: 94 T: 0 QT: 335 QTc: 386 Interpretive Statements ATRIAL FIBRILLATION LOW QRS VOLTAGE IN EXTREMITY LEADS [QRS DEFLECTION < 0.5 mV IN LIMBLEADS] Nonspecific ST-T abnormality No previous ECG available for comparison CE ASSISTANCE us Cheikh Cortes MD ECG ORDERABLES Final Resul t [facility] RAD * XA LEFT ATRIAL APPENDAGE CLOSURE (01/08/2024 11:31 AM OFFICE ASSISTANCE) Anatomical Region Laterality Modality Cardiac Gang Drill Press Operator Narrative 01/13/2024 9:26 AM OFFICE ASSISTANCE [facility] CARDIAC CATHETERIZATION /EP LAB [phone] Watchman Procedure Patient Name: ??Levon Anne Date of : ?? 1950 Medical Record: ??#[id number] Account: ?? #[id number] Physician: ??Cheikh Cortes MD Date: ?? 01/08/2024 Procedure: ??#[id number] / #[id number] TRANSCATHETER LEFT ATRIAL APPENDAGE CLOSURE WITH WATCHMAN DEVICE ?? carbonation equipment operator: ?Cheikh Cortes M.D. Procedures: ?? 1. Transseptal puncture 2. Left atrial pressure measurement 3. Left atrial appendage angiography 4. Transcatheter left atrial appendage closure with Watchman implant 5. Intracardiac ultrasound (ICE) Indications: Patient with atrial fibrillation, increased risk of stroke, not a good long-term candidate for oral anticoagulation therapy given history of bleeding complications while on oral anticoagulation therapy. ??Patient is seeking a nonpharmacologic alternative for stroke prevention. Procedural details After risks, benefits, alternatives were discussed in great detail, patient was brought to the cardiac catheterization laboratory in fasting condition. ??TIVA was used for the procedure. ?? Access was obtained under vascular ultrasound guidance into the right and left femoral vein using Seldinger technique, accessed with ultrasound and noted to be patent. ??Image was saved and archived. ?? Standard short 0.035J wire advanced into the veins and a short 8F sheath placed on the right femoral vein and a 9F sheath was placed on the left femoral vein. Two Perclose devices were placed prior to sheath placement on the right femoral vein. ?? Heparin bolused using a weight based algorithm to obtain and maintain ACT >250s. A intracardiac ultrasound catheter was advanced to the right atrium and RVOT/pulmonary artery. Confirmation of absence of thrombus in the ANDERSON and LA was noted on ICE. ?? Measurements were obtained of the left atrial appendage. ?? The right femoral vein sheath was then exchanged over a long wire (advanced to the superior vena cava under fluoroscopic guidance) for a VersaCross sheath. ??Under fluoroscopy and ICE guidance, using a VersaCross needle, transseptal puncture was performed in posterior and low position. ?? A VersaCross wire was advanced into the left atrium through the transseptal sheath. ?? The transseptal sheath was then exchanged for 14 Urdu Watchman delivery guide catheter over the wire. The mean left atrial pressure was measured at 18 mmHg. A pigtail catheter was then advanced into the left atrium through the sheath into the left atrial appendage. ??Left atrial appendage angiography was performed in HERN[place]NDEZ caudal projection. ?? Based upon the measurements, a 40 mm Watchman device was chosen. ?? After usual preparation and de-airing maneuvers outside the body, the Watchman device was advanced through the delivery catheter into the left atrial appendage. ??Using fluoroscopy and intracardiac echocardiography guidance the Watchman device was unsheathed in the left atrial appendage. ?? A tug test was performed to check for anchoring. ??After PASS (position, anchor, size, seal) criteria were met based upon ICE and fluoroscopy, the device was released without complications. The delivery guide catheter was retracted back into the right atrium. ?? Hemostasis was obtained in the right groin using Perclose devices and left closed with Vascade MVP. There were no immediate complications following the procedure. EBL < 10 cc. Conclusion: Successful deployment of Watchman left atrial appendage occlusion device. Cheikh Cortes MD MH/vs Interpreted: ?? 01/11/24 Transcribed: ??01/11/24 Cheikh Cortes MD CRAP GAME BOX PERSON Final Resul t * (ABNORMAL) POCT ACTIVATED CLOTTING TIME - ISTAT DOCKED DEVICE (01/08/2024 11:13 AM OFFICE ASSISTANCE) ACTIVATED CLOTTING TIME (ACT) 274(H) 74 - 125 SEC 01/08/2024 11:47 AM OFFICE ASSISTANCE [facility] FENCE SETTER CODE [id number] 01/08/2024 11:47 AM OFFICE ASSISTANCE [facility] 01/08/2024 11:1 3 AM OFFICE ASSISTANCE Cheikh Cortes MD POCT ORDERABLES - DEVICE Fi nal Result [facility] [address] [place] [address], * TYPE & SCREEN (01/08/2024 9:31 AM OFFICE ASSISTANCE) UNITS ORDERED 4 01/08/2024 11:19 AM OFFICE ASSISTANCE [facility] ABO/RH A POSITIVE 01/08/2024 10:37 AM OFFICE ASSISTANCE [facility] ANTIBODY SCREEN NEGATIVE 10:37 AM [facility] SAMPLE EXPIRATION 01/11/2024,23 59 01/08/2024 10:37 AM [facility] BLOOD UNIT NUMBER [id number] 01/08/2024 11:19 AM [facility] PRODUCT: PC LEUKOPOOR 01/08/2024 11:19 AM [facility] UNIT DIVISION 00 01/08/2024 11:19 AM [facility] BLOOD UNIT STATUS UNIT RELEASED 01/08/2024 12:47 PM [facility] TRANSFUSION STATUS OK TO TRANSFUSE 01/08/2024 11:19 AM [facility] CROSSMATCH COMPATIBLE-EX M 01/08/2024 11:19 AM [facility] BLOOD UNIT NUMBER [id number] 01/08/2024 11:19 AM [facility] PRODUCT: PC LEUKOPOOR 01/08/2024 11:19 AM [facility] UNIT DIVISION 00 01/08/2024 11:19 AM [facility] BLOOD UNIT STATUS UNIT RELEASED 01/08/2024 12:47 PM [facility] TRANSFUSION STATUS OK TO TRANSFUSE 01/08/2024 11:19 AM [facility] CROSSMATCH COMPATIBLE-EX M 01/08/2024 11:19 AM [facility] BLOOD UNIT NUMBER [id number] 01/08/2024 11:19 AM [facility] PRODUCT: PC LEUKOPOOR 01/08/2024 11:19 AM [facility] UNIT DIVISION 00 01/08/2024 11:19 AM [facility] BLOOD UNIT STATUS UNIT RELEASED 01/08/2024 12:47 PM [facility] TRANSFUSION STATUS OK TO TRANSFUSE 01/08/2024 11:19 AM [facility] CROSSMATCH COMPATIBLE-EX M 01/08/2024 11:19 AM [facility] BLOOD UNIT NUMBER [id number] 01/08/2024 11:19 AM [facility] PRODUCT: PC LEUKOPOOR 01/08/2024 11:19 AM [facility] UNIT DIVISION 00 01/08/2024 11:19 AM [facility] BLOOD UNIT STATUS UNIT RELEASED 01/08/2024 12:47 PM [facility] TRANSFUSION STATUS OK TO TRANSFUSE 01/08/2024 11:19 AM [facility] CROSSMATCH COMPATIBLE-EX M 01/08/2024 11:19 AM [facility] 01/08/2024 9:31 AM OFFICE ASSISTANCE Cheikh Cortes MD BLOOD BANK TEST ORDERABLES Final Result Performing Organization Address City/State/[facility] de Phone Number [facility] [address] [place] [address], [place] [phone] * PROTIME/INR, VENOUS (01/08/2024 9:31 AM OFFICE ASSISTANCE) PROTIME 11.3 10.2 - 12.9 SEC 01/08/2024 10:04 AM [facility] INR 1.0 01/08/2024 10:04 AM [facility] Comment: Recommended INR Therapeutic Goals: ??2.0-3.0 Routine Therapy ??2.5-3.5 Mechanical Prosthetic Valves (High Risk) 01/08/2024 9:31 AM OFFICE ASSISTANCE Cheikh Cortes MD LABORATORY Final Resul t [facility] [address] [place] [address], * (ABNORMAL) BASIC METABOLIC PANEL (01/08/2024 9:31 AM OFFICE ASSISTANCE) [facility] Signature GLUCOSE 112(H) 70 - 99 MG/DL 01/08/2024 10:08 AM [facility] BUN 26(H) 7 - 18 MG/DL 01/08/2024 10:08 AM [facility] CREATININE S/P/B 1.07 0.7 - 1.3 MG/DL 01/08/2024 10:08 AM [facility] SODIUM S/P/B 138 136 - 145 MMOL/L 01/08/2024 10:08 AM [facility] POTASSIUM S/P/B 4.2 3.5 - 5.1 MMOL/L 01/08/2024 10:08 AM [facility] CHLORIDE S/P/B 107 97 - 115 MMOL/L 01/08/2024 10:08 AM [facility] CO2 29.4 21 - 32 MMOL/L 01/08/2024 10:08 AM [facility] CALCIUM S/P/B 9.4 8.5 - 10.1 MG/DL 01/08/2024 10:08 AM [facility] ANION GAP 1.6(L) 2 - 10 MMOL/L 01/08/2024 10:08 AM [facility] BUN CREATININE RATIO 24.3 6 - 26 01/08/2024 10:08 AM [facility] GFR ESTIMATE 72(L) >90 ML/MIN/1.7 3 M2 01/08/2024 10:08 AM [facility] Comment: NOTE: eGFR is not calculated for patients <18 years of age or gender unknown. This is an estimated GFR calculation using the new CKD EPI creatinine equation without race and so does not require a correction factor for race. This estimated GFR should not be used for calculating drug doses. 01/08/2024 9:31 AM OFFICE ASSISTANCE Cheikh Cortes MD LABORATORY Final Resul t [facility] [address] [place] [address], [place] [phone] * (ABNORMAL) CBC W/DIFF AUTOMATED (01/08/2024 9:31 AM OFFICE ASSISTANCE) WBC 4.99 4.5 - 11.0 x10'3/uL 01/08/2024 9:48 AM OFFICE ASSISTANCE [facility] RBC 3.78(L) 4.70 - 6.10 x10'6/uL 01/08/2024 9:48 AM [facility] HGB 11.2(L) 14.0 - 18.0 G/DL 01/08/2024 9:48 AM [facility] HCT 35.1(L) 43.0 - 54.0 % 01/08/2024 9:48 AM [facility] MCV 92.9 80.0 - 94.0 FL 01/08/2024 9:48 AM OFFICE ASSISTANCE [facility] MCH 29.6 27.0 - 31.0 PG 01/08/2024 9:48 AM OFFICE ASSISTANCE [facility] MCHC 31.9(L) 32.0 - 36.0 G/DL 01/08/2024 9:48 AM [facility] RDW 16.9(H) 11.5 - 14.5 % 01/08/2024 9:48 AM [facility] PLT 287 130 - 400 x10'3/uL 01/08/2024 9:48 AM [facility] MPV 8.9(L) 9.3 - 12.2 FL 01/08/2024 9:48 AM [facility] DIFFERENTIAL TYPE AUTOMATED DIFFERENTIAL 01/08/2024 9:48 AM [facility] NEUTROPHILS % 57.9 % 01/08/2024 9:48 AM [facility] LYMPHOCYTES % 30.9 % 01/08/2024 9:48 AM [facility] MONOCYTES % 8.8 % 01/08/2024 9:48 AM [facility] EOSINOPHILS 1.6 % 01/08/2024 9:48 AM [facility] BASOPHILS 0.6 % 01/08/2024 9:48 AM [facility] IMMATURE GRANS % 0.2 % 01/08/20 9:48 AM [facility] ABS. NEUTROPHILS 2.89 1.80 - 7.70 x10'3/uL 01/08/2024 9:48 AM [facility] ABS. LYMPHOCYTES 1.54 1.00 - 4.80 x10'3/uL 01/08/2024 9:48 AM [facility] ABS. MONOCYTES 0.44 0.30 - 0.82 x10'3/uL 01/08/2024 9:48 AM [facility] ABS. EOSINOPHILS 0.08 0.04 - 0.54 x10'3/uL 01/08/2024 9:48 AM [facility] ABS. BASOPHILS 0.03 0.01 - 0.08 x10'3/uL 01/08/2024 9:48 AM [facility] ABS. IMMATURE GRANULOCYTES 0.01 0.00 - 0.49 x10'3/uL 01/08/2024 9:48 AM OFFICE ASSISTANCE [facility] 01/08/2024 9:31 AM OFFICE ASSISTANCE Cheikh Cortes MD LABORATORY Final Resul t Performing Organization Address City/[facility] Co de Phone Number [facility] [address] [place] [address], * MRSA SCREENING (01/08/2024 9:27 AM OFFICE ASSISTANCE) SPEC DESCRIPTION NASAL 01/08/2024 9:28 AM OFFICE ASSISTANCE [facility] SPECIAL REQUESTS NO SPECIAL REQUEST 01/08/2024 9:28 AM OFFICE ASSISTANCE [facility] CULTURE RESULT NO METHICILLIN RESISTANT STAPHYLOCOCCUS AUREUS ISOLATED 01/09/2024 6:47 AM OFFICE ASSISTANCE [facility] SPECIMEN FROM INTERNAL NOSE / Unknown 01/08/2024 9:27 AM OFFICE ASSISTANCE 01/08/2024 9:36 AM OFFICE ASSISTANCE Cheikh Cortes MD MICROBIOLOGY - GENERAL ORDE [facility] Final Result Performing Organization Address [facility] Co de Phone Number [facility] [address] [place] [address], from Last 3 Months Insurance MEDICARE COUNTRY INSURANCE Advance Directives * Full Code (Latest Code Status on File) Date Activated Date Inactivated Comments 01/08/2024 12:30 PM 01/08/2024 5:51 PM Care Teams Sheriffs Relationship Specialty Start Date End Date Dalton Gonsales MD [address] [place] [address] PCP - General INTERNAL MEDICINE 12/31/23 Miguel Warner DO [address] [place] [address] INTERNAL MEDICINE 12/31/23
--- OUTSIDE RECORDS SUMMARY | 2024-03-18 19:26 | XMS_ITS | Encounter Summary ---
Author Organization [facility] Address [address] [place] [address]. [place], [place] [address] [place] [address] Care Team Providers Care Horticultural Manager Name Role Phone Dalton Gonsales MD Primary Care Provider [phone] Miguel Warner DO Unavailable Reason for Visit * Reason Onset Date Comments Information 03/17/2024 Miguel Arguello DO Encounter Details Date Type Department Care Team (Late st Contact Info) Description 03/17/2024 Telephone [facility], [facility] [address] [place], [place] [phone] Tomi Celaya MD [facility]. [facility] [address] [place], [place] [address] Information (Miguel Arguello DO) Social History Tobacco Use Types Packs/Day Years Used Date Smoking Tobacco: Former Cigarettes 0.5 6 1 961 - 0288 Smokeless Tobacco: Never Alcohol Use Standard Drinks/Week Comments Never 0 (1 standard drink = 0.6 oz pur e alcohol) Sex and Gender Information Value Date Recorded Sex Assigned at Not on file Legal Sex Male 1:06 PM CDT Gender Identity Not on file Sexual Orientation Not on file documented as of this encounter Progress Notes * Lian Le - 03/17/2024 9:33 AM CSTSummary: Miguel Arguello DO 03/17/24 Miguel Arguellog, DO care team P) [phone] F) [phone] Care team requestin02/16/24 OV notes 01/08/24 ECHO 01/08/24 ECG Trace 01/08/24 Watchman report PDF via RT FAX ATE SECRETARY documented in this encounter Plan of Treatment Upcoming Encounters Date Type Department Care Team (Late st Contact Info) Description 03/30/2024 1:00 PM PRIVATE SECRETARY Appointment [facility] [address] [facility] [place] [address] Tomi Celaya MD [address] [place] [address] 07/14/2024 10:00 AM CDT Office Visit [facility] [address] [facility] [address], [address] [place] [address] Claire Lang PA [address] [facility] [address] [place] [address] documented as of this encounter Visit Diagnoses Not on filedocumented in this encounter Care Teams Horticultural Manager Relationship Specialty Start Date End Date Dalton Gonsales MD [address] [place] [address] PCP - General INTERNAL MEDICINE 12/31/23 Miguel Warner DO [address] [place] [address] INTERNAL MEDICINE 12/31/23 documented as of this encounter
[2024-03-18 19:27] VITALS: BP 168/105; PULSE 97; RESP 18; TEMP 36.1; O2SAT 100
--- OUTSIDE RECORDS SUMMARY | 2024-03-18 20:09 | XMS_ITS | Encounter Summary ---
Author Organization [facility] Address [address] [place] [address]. [place], [place] [address] [place] [address] Care Team Providers Care Brake Operator Name Role Phone Dalton Gonsales MD Primary Care Provider [phone] Miguel Warner DO Unavailable Encounter Details Date Type Department Care Team (Late st Contact Info) Description 01/01/2024 Pre-Procedure Call [facility] [place] [address] Tomi Celaya MD Three [facility]. [address] [address] Social History Tobacco Use Types Packs/Day Years Used Date Smoking Tobacco: Former Cigarettes 0.5 6 1 968 - 9181 Smokeless Tobacco: Never Alcohol Use Standard Drinks/Week [...] (Late Contact Info) Description 03/30/2024 1:00 PM SERVICE ADVOCATE CONTACT Appointment [facility] [address] [facility] [address] [place], [place] [address] Tomi Celaya MD Three [facility]. [address] [address] 07/14/2024 10:00 AM CDT Office Visit [facility] THREE [facility], [place] [address] [place] [address] Claire Lang PA 3 [facility] [address] [place] [address] documented as of this encounter Visit Diagnoses Not on filedocumented in this encounter Care Teams Brake Operator Relationship Specialty Start Date End Date Dalton Gonsalse MD [address] [place] [address] PCP - General INTERNAL MEDICINE 12/31/23 Miguel Warner DO [address] [facility] [address] [place] [address] INTERNAL MEDICINE 12/31/23 documented as of this encounter
--- OUTSIDE RECORDS SUMMARY | 2024-03-18 20:09 | XMS_ITS | Clinical Summary ---
Author Organization [facility] Address [address] [place] [address]. [place], [place] [address] [place] [address] Care Team Providers Care Lot Technician Name Role Phone Dalton Gonsales MD Primary Care Provider [phone] Miguel Warner DO Unavailable Allergies No known [...] Description 03/17/2024 Telephone [facility] THREE [address] [address] Cheikh Cortes MD Information ([facility], Miguel Warner DO) 02/16/2024 10:30 AM BODY TECHNICIAN Office Visit [facility], [address] [address] [phone] Claire Lang PA Atrial Fibrillation (Follow up) 02/16/2024 Travel 02/03/2024 Orders Only [facility] THREE [address] [address] Cheikh Cortes MD 01/08/2024 10:31 AM BODY TECHNICIAN Anesthesia Event [facility] [place] [address] Florentino Luis MD Jarvis, Brittany L, CLAIMS TECHNICIAN 01/08/2024 9:28 AM BODY TECHNICIAN - 01/08/2024 3:50 PM BODY TECHNICIAN Hospital Encounter [facility] [place] [address] Cheikh Cortes MD Morcos, Ehab S, MD Discharge Disposition: Home or Self Care (Routine Discharge) 01/08/2024 9:27 AM BODY TECHNICIAN Hospital Encounter [facility] [place] [address] Cheikh Cortes MD Discharge Disposition: Home or Self Care (Routine Discharge) 01/08/2024 Travel 01/07/2024 Prep for Procedure [facility] [place] [address] Cheikh Cortes MD 01/06/2024 Orders Only [facility] [address] Cheikh Cortes MD 01/01/2024 Pre-Procedure Call [facility] [place] [address] Cheikh Cortes MD 01/01/2024 Pre-Procedure Call [facility] [place] [address] Cheikh Cortes MD Preprocedure Call (Watchman pre-op eval call) 12/31/2023 10:30 AM BODY TECHNICIAN Office Visit [facility], [address] [address] Cheikh Cortes MD Atrial Fibrillation (Watchman consult) 12/31/2023 Telephone [facility], [address] [address] Cheikh Cortes MD Information 12/31/2023 Travel from [...] Comments Blood Pressure 118/70 02/16/2024 10:22 AM BODY TECHNICIAN Pulse 84 02/16/2024 10:22 AM BODY TECHNICIAN Temperature 36.8 ??C (98.2 ??F) 01/08/2024 12:15 PM C Respiratory Rate 16 01/08/2024 3:00 PM BODY TECHNICIAN Oxygen Saturation 98% 02/16/2024 10:22 AM BODY TECHNICIAN Inhaled Oxygen Concentration - - Weight 70.8 kg (156 lb) 02/16/2024 10:22 AM BODY TECHNICIAN Height 180.3 cm (5' 11 ) 02/16/2024 10:22 AM BODY TECHNICIAN Body Mass Index 21.76 02/16/2024 10:22 AM BODY TECHNICIAN Plan of Treatment Upcoming Encounters Date Type Department Care Team (Late st Contact Info) Description 03/30/2024 1:00 PM BODY TECHNICIAN Appointment [facility] [place] [address] Cheikh Cortes MD Three [facility]. [address] [place], [place] [address] 07/14/2024 10:00 AM CDT Office Visit [facility], [address] [place], [place] [address] Claire Lang PA 3 [facility] [address] [place], [place] [address] Health Maintenance Due Date Last Done Comments [...] this topic Medical Devices Implanted Type Area Feather Duster Winder Device Identifier Shelf Expiration Date Model / Serial / Lot Anderson Closure Device- 024 Implanted:Qty: 1 on 01/08/2024 by Cheikh Cortes MD Closure Device [employer] 06/25/2026 / / [id number] Procedures Procedure Name Priority Date/Time Associated Diagnosis Comments USE ECHO 2D FU LTD STAT 01/08/2024 1: 39 PM BODY TECHNICIAN XR CHEST PORTABLE Routine 01/08/2024 12: 04 PM BODY TECHNICIAN ECG 12-LEAD STAT 01/08/2024 11:45 AM BODY TECHNICIAN Atrial fibrillation, unspecified type (CMS/HCC HHS/HCC) XA LEFT ATRIAL APPENDAGE CLOSURE Routine 01/08/2024 11:31 AM BODY TECHNICIAN Atrial fibrillation, unspecified type (CMS/HCC HHS/HCC) POCT ACTIVATED CLOTTING TIME - ISTAT DOCKED DEVICE Routine 01/08/2024 11:13 AM BODY TECHNICIAN TYPE & SCREEN Routine 01/08/2024 9:31 AM BODY TECHNICIAN Atrial fibrillation (CMS/HCC HHS/HCC) PROTHROMBIN TIME, VENOUS Routine 01/08/2024 9:31 AM BODY TECHNICIAN Atrial fibrillation (CMS/HCC HHS/HCC) BASIC METABOLIC PANEL Routine 01/08/2024 9:31 AM BODY TECHNICIAN Atrial fibrillation (CMS/HCC HHS/HCC) CBC W/DIFF AUTOMATED Routine 01/08/2024 9:31 AM BODY TECHNICIAN Atrial fibrillation (CMS/HCC HHS/HCC) MRSA SCREENING Routine 01/08/2024 9:27 AM BODY TECHNICIAN Atrial fibrillation (CMS/HCC HHS/HCC) from Last 3 Months Results * USE ECHO 2D FU LTD (01/08/2024 1:39 PM BODY TECHNICIAN) Anatomical Region Laterality Modality Cardiac Echocardiogram 01/08/2024 2:06 PM BODY TECHNICIAN Narrative 01/11/2024 9:01 AM BODY TECHNICIAN ?Echocardiography Report Pat.Name: ??ANNE, LEVON ?Pat.ID: ?[id number] ? St.Date: ?? 01/08/2024 ? Refer.MD: ??[id number], Husconstantino cheikh leone ewdprov ewdprov Exam Time: [...] 01/11/2024 Echocardiography Report Pat.Name: LEVON ANNE Pat.ID: [id number] .Date: 01/08/2024 Refer.MD: [id number], Sebastian leone ewdprov ewdprov Exam Time: 2:06:00 PM Study Type:ECHO WITH CARDIAC DOPPLER COMP Height: 71 in Weight: 157 lb BSA: 1.9 m2 Age: 2 1950,73Y Sex: M HR: 51 bpm Sonogrphr: Veronica Awan RDCS Pat. Stat.:[facility] Reason for Study:Post watchman Procedures: 2D, The study quality is technically good. Race: W ++++++++++++++++++++++++++++++++++++ SUMMARY: ++++++++++++++++++++++++++++++++++++ Trivial pericardial effusion. [place]: Trivial pericardial effusion. <Electronic Signature> 01/11/2024 09:01 AM Dionne Bonilla M.D. us Cheikh Cortes MD ECHO Final Resul t * XR CHEST PORTABLE (01/08/2024 12:04 PM BODY TECHNICIAN) Anatomical Region Laterality Modality Chest Radiographic Kajal ging 01/08/2024 12:5 9 PM BODY TECHNICIAN Impressions 01/08/2024 12:59 PM BODY TECHNICIAN IMPRESSION: No acute findings Ordered By: CHEIKH CORTES Interpreted By: Kevin Winn MD, 01/08/2024 12:59 PM Narrative 01/08/2024 12:59 PM BODY TECHNICIAN [facility] [address] [place] [address] SINGLE VIEW OF THE CHEST Clinical history: [...] Procedure Note Kevin Winn MD - 01/08/2024 [facility] [address] [place], [place] [address] SINGLE VIEW OF THE CHEST Clinical history: [...] * ECG 12 lead (01/08/2024 11:45 AM BODY TECHNICIAN) 01/08/2024 11:4 5 AM BODY TECHNICIAN Narrative [facility] - 01/09/2024 3:23 PM BODY TECHNICIAN ?[facility] [place] ? [address] [place] ? Test Date: ?2024-01-08 Pat Name: ? LEVON ANNE ?Department: ?? 40 ? Room: ? ODS Gender: ? Male ? Exchange Trouble Shooter: ?? Cc : ?1950 ? Requested By: CHEIKH SEBASTIAN Order Number: [id number] ? Reading MD: ?? Shiyam Satwani ? Measurements Intervals ?[place] ? Rate: ? 79 ? P: ? NV: ? 0 ?QRS: ?20 QRSD: ? 94 ? T: ?0 QT: ? 335 ? QTc: ?386 ? Interpretive Statements ATRIAL FIBRILLATION LOW QRS VOLTAGE IN EXTREMITY LEADS ??[QRS DEFLECTION < 0.5 mV IN LIMB LEADS] Nonspecific ST-T abnormality No previous ECG available for comparison TECHNICIAN Procedure Note Tamara Kwong MD - 01/09/[address] Test Date: 2024-01-08 Pat Name: LEVON ANNE Department: 40 Room: [facility] Gender: Male Exchange Trouble Shooter: Cc : 1950 Requested By: CHEIKH CORTES Order Number: [id number] Reading MD: Tamara Kwong Measurements Intervals [place] Rate: 79 P: NV: 0 QRS: 20 QRSD: 94 T: 0 QT: 335 QTc: 386 Interpretive Statements ATRIAL FIBRILLATION LOW QRS VOLTAGE IN EXTREMITY LEADS [QRS DEFLECTION < 0.5 mV IN LIMBLEADS] Nonspecific ST-T abnormality No previous ECG available for comparison TECHNICIAN us Cheikh Cortes MD ECG ORDERABLES Final Resul t [facility] * XA LEFT ATRIAL APPENDAGE CLOSURE (01/08/2024 11:31 AM BODY TECHNICIAN) Anatomical Region Laterality Modality Cardiac Conceptor Narrative 01/13/2024 9:26 AM BODY TECHNICIAN [facility]EP LAB [phone] Watchman Procedure Patient Name: ??Levon Anne Date of : ?? 1950 Medical Record: ??#[id number] Account: ?? #[id number] Physician: ??Cheikh Cortes MD Date: ?? 01/08/2024 Procedure: ??#[id number] / #[id number] TRANSCATHETER LEFT ATRIAL APPENDAGE CLOSURE WITH WATCHMAN DEVICE ?? hoop bending machine operator: ?Cheikh Cortes M.D. Procedures: ?? 1. [...] transseptal sheath was then exchanged for 14 Green[place] Watchman delivery guide catheter over the wire. [...] ?? 01/11/24 Transcribed: ??01/11/24 Cheikh Cortes MD BALLET TEACHER Final Resul t * (ABNORMAL) POCT ACTIVATED CLOTTING TIME - ISTAT DOCKED DEVICE (01/08/2024 11:13 AM BODY TECHNICIAN) ACTIVATED CLOTTING TIME (ACT) 274(H) 74 - 125 SEC 01/08/2024 11:47 AM BODY TECHNICIAN [facility] FINISHING OPERATOR CODE 603,341 01/08/2024 11:47 AM BODY TECHNICIAN [facility] 01/08/2024 11:1 3 AM BODY TECHNICIAN Cheikh Cortes MD POCT ORDERABLES - DEVICE Fi nal Result [facility] [address] [place] [address], * TYPE & SCREEN (01/08/2024 9:31 AM BODY TECHNICIAN) UNITS ORDERED 4 01/08/2024 11:19 AM BODY TECHNICIAN [facility] ABO/RH A POSITIVE 01/08/2024 10:37 AM BODY TECHNICIAN [facility] ANTIBODY SCREEN NEGATIVE 10:37 AM [facility] SAMPLE EXPIRATION 01/11/2024,23 59 01/08/2024 10:37 AM [facility] BLOOD UNIT NUMBER [id number] 01/08/2024 11:19 AM [facility] PRODUCT: PC LEUKOPOOR 01/08/2024 11:19 AM [facility] UNIT DIVISION 00 01/08/2024 11:19 AM [facility] BLOOD UNIT STATUS UNIT RELEASED 01/08/2024 12:47 PM [facility] TRANSFUSION STATUS OK TO TRANSFUSE 01/08/2024 11:19 AM [facility] CROSSMATCH COMPATIBLE-EX M 01/08/2024 11:19 AM [facility] BLOOD UNIT NUMBER [id number] 01/08/2024 11:19 AM [facility] PRODUCT: PC LEUKOPOOR 01/08/2024 11:19 AM [facility] UNIT DIVISION 00 01/08/2024 11:19 AM [facility] BLOOD UNIT STATUS UNIT RELEASED 01/08/2024 12:47 PM [facility] TRANSFUSION STATUS OK TO TRANSFUSE 01/08/2024 11:19 AM [facility] CROSSMATCH COMPATIBLE-EX M 01/08/2024 11:19 AM [facility] BLOOD UNIT NUMBER [id number] 01/08/2024 11:19 AM [facility] PRODUCT: PC LEUKOPOOR 01/08/2024 11:19 AM [facility] UNIT DIVISION 00 01/08/2024 11:19 AM [facility] BLOOD UNIT STATUS UNIT RELEASED 01/08/2024 12:47 PM [facility] TRANSFUSION STATUS OK TO TRANSFUSE 01/08/2024 11:19 AM [facility] CROSSMATCH COMPATIBLE-EX M 01/08/2024 11:19 AM [facility] BLOOD UNIT NUMBER [id number] 01/08/2024 11:19 AM [facility] PRODUCT: PC LEUKOPOOR 01/08/2024 11:19 AM [facility] UNIT DIVISION 00 01/08/2024 11:19 AM [facility] BLOOD UNIT STATUS UNIT RELEASED 01/08/2024 12:47 PM [facility] TRANSFUSION STATUS OK TO TRANSFUSE 01/08/2024 11:19 AM [facility] CROSSMATCH COMPATIBLE-EX M 01/08/2024 11:19 AM [facility] 01/08/2024 9:31 AM BODY TECHNICIAN Cheikh Cortes MD BLOOD BANK TEST ORDERABLES Final Result Performing Organization Address City/State/[facility] de Phone Number [facility] [address] [place] [address], [place] [phone] * PROTIME/INR, VENOUS (01/08/2024 9:31 AM BODY TECHNICIAN) PROTIME 11.3 10.2 - 12.9 SEC 01/08/2024 10:04 AM [facility] INR 1.0 01/08/2024 10:04 AM [facility] Comment: Recommended INR Therapeutic Goals: ??2.0-3.0 Routine Therapy ??2.5-3.5 Mechanical Prosthetic Valves (High Risk) 01/08/2024 9:31 AM BODY TECHNICIAN Cheikh Cortes MD LABORATORY Final Resul t [facility] [address] [place] [address], * (ABNORMAL) BASIC METABOLIC PANEL (01/08/2024 9:31 AM BODY TECHNICIAN) [facility] Signature GLUCOSE 112(H) 70 - 99 MG/DL 01/08/2024 10:08 AM [facility] BUN 26(H) 7 - 18 MG/DL 01/08/2024 10:08 AM [facility] CREATININE S/P/B 1.07 0.7 - 1.3 MG/DL 01/08/2024 10:08 AM [facility] SODIUM S/P/B 138 136 - 145 MMOL/L 01/08/2024 10:08 AM [facility] POTASSIUM S/P/B 4.2 3.5 - 5.1 MMOL/L 01/08/2024 10:08 AM [facility] CHLORIDE S/P/B 107 97 - 115 MMOL/L 01/08/2024 10:08 AM [facility] CO2 29.4 21 - 32 MMOL/L 01/08/2024 10:08 AM [facility] CALCIUM S/P/B 9.4 8.5 - 10.1 MG/DL 01/08/2024 10:08 AM [facility] ANION GAP 1.6(L) 2 - 10 MMOL/L 01/08/2024 10:08 AM [facility] BUN CREATININE RATIO 24.3 6 - 26 01/08/2024 10:08 AM [facility] GFR ESTIMATE 72(L) >90 ML/MIN/1.7 3 M2 01/08/2024 10:08 AM [facility] Comment: NOTE: eGFR is not calculated for patients <18 years of age or gender unknown. This is an estimated GFR calculation using the new CKD EPI creatinine equation without race and so does not require a correction factor for race. This estimated GFR should not be used for calculating drug doses. 01/08/2024 9:31 AM BODY TECHNICIAN Cheikh Cortes MD LABORATORY Final Resul t [facility] [address] [place] [address], [place] [phone] * (ABNORMAL) CBC W/DIFF AUTOMATED (01/08/2024 9:31 AM BODY TECHNICIAN) WBC 4.99 4.5 - 11.0 x10'3/uL 01/08/2024 9:48 AM BODY TECHNICIAN [facility] RBC 3.78(L) 4.70 - 6.10 x10'6/uL 01/08/2024 9:48 AM [facility] HGB 11.2(L) 14.0 - 18.0 G/DL 01/08/2024 9:48 AM [facility] HCT 35.1(L) 43.0 - 54.0 % 01/08/2024 9:48 AM [facility] MCV 92.9 80.0 - 94.0 FL 01/08/2024 9:48 AM BODY TECHNICIAN [facility] MCH 29.6 27.0 - 31.0 PG 01/08/2024 9:48 AM BODY TECHNICIAN [facility] MCHC 31.9(L) 32.0 - 36.0 G/DL 01/08/2024 9:48 AM [facility] RDW 16.9(H) 11.5 - 14.5 % 01/08/2024 9:48 AM [facility] PLT 287 130 - 400 x10'3/uL 01/08/2024 9:48 AM [facility] MPV 8.9(L) 9.3 - 12.2 FL 01/08/2024 9:48 AM [facility] DIFFERENTIAL TYPE AUTOMATED DIFFERENTIAL 01/08/2024 9:48 AM [facility] NEUTROPHILS % 57.9 % 01/08/2024 9:48 AM [facility] LYMPHOCYTES % 30.9 % 01/08/2024 9:48 AM [facility] MONOCYTES % 8.8 % 01/08/2024 9:48 AM [facility] EOSINOPHILS 1.6 % 01/08/2024 9:48 AM [facility] BASOPHILS 0.6 % 01/08/2024 9:48 AM [facility] IMMATURE GRANS % 0.2 % 01/08/20 9:48 AM [facility] ABS. NEUTROPHILS 2.89 1.80 - 7.70 x10'3/uL 01/08/2024 9:48 AM [facility] ABS. LYMPHOCYTES 1.54 1.00 - 4.80 x10'3/uL 01/08/2024 9:48 AM [facility] ABS. MONOCYTES 0.44 0.30 - 0.82 x10'3/uL 01/08/2024 9:48 AM [facility] ABS. EOSINOPHILS 0.08 0.04 - 0.54 x10'3/uL 01/08/2024 9:48 AM [facility] ABS. BASOPHILS 0.03 0.01 - 0.08 x10'3/uL 01/08/2024 9:48 AM [facility] ABS. IMMATURE GRANULOCYTES 0.01 0.00 - 0.49 x10'3/uL 01/08/2024 9:48 AM BODY TECHNICIAN [facility] 01/08/2024 9:31 AM BODY TECHNICIAN Cheikh Cortes MD LABORATORY Final Resul t Performing Organization Address City/[facility] Co de Phone Number [facility] [address] [place] [address], * MRSA SCREENING (01/08/2024 9:27 AM BODY TECHNICIAN) SPEC DESCRIPTION NASAL 01/08/2024 9:28 AM BODY TECHNICIAN [facility] SPECIAL REQUESTS NO SPECIAL REQUEST 01/08/2024 9:28 AM BODY TECHNICIAN [facility] CULTURE RESULT NO METHICILLIN RESISTANT STAPHYLOCOCCUS AUREUS ISOLATED 01/09/2024 6:47 AM BODY TECHNICIAN [facility] SPECIMEN FROM INTERNAL NOSE / Unknown 01/08/2024 9:27 AM BODY TECHNICIAN 01/08/2024 9:36 AM BODY TECHNICIAN Cheikh Cortes MD MICROBIOLOGY - GENERAL [facility] Final Result Performing Organization Address [facility] Co de Phone Number [facility] [address] [place] [address], from Last 3 Months Insurance MEDICARE COUNTRY INSURANCE Advance Directives * Full Code (Latest Code Status on File) Date Activated Date Inactivated Comments 01/08/2024 12:30 PM 01/08/2024 5:51 PM Care Teams Lot Technician Relationship Specialty Start Date End Date Dalton Gonsales MD [address] [place] [address] PCP - General INTERNAL MEDICINE 12/31/23 Miguel Warner DO [address] [place] [address] INTERNAL MEDICINE 12/31/23
--- OUTSIDE RECORDS SUMMARY | 2024-03-18 20:10 | XMS_ITS | Encounter Summary ---
Author Organization [facility] Address [address] [place] [address]. [place], [place] [address] [place] [address] Care Team Providers Care Dental Officer Name Role Phone Dalton Gonsales MD Primary Care Provider [phone] Miguel Warner DO Unavailable Reason for Visit * Reason Onset Date Comments Information 03/17/2024 Miguel Arguello DO Encounter Details Date Type Department Care Team (Late st Contact Info) Description 03/17/2024 Telephone [facility] THREE [facility], [facility] [address] [place], [place] [id number] Tomi Celaya MD [facility]. [facility] [address] [place], [place] [address] Information (Miguel Arguello DO) Social History Tobacco Use Types Packs/Day Years Used Date Smoking Tobacco: Former Cigarettes 0.5 6 1 961 - 9221 Smokeless Tobacco: Never Alcohol Use Standard Drinks/Week [...] 03/17/24 Miguel Arguellog, DO care team P) [phone] F) [phone] Care team requestin02/16/24 OV notes 01/08/24 ECHO 01/08/24 ECG Trace 01/08/24 Watchman report PDF via RT FAX AD SINGER documented in this encounter Plan of Treatment Upcoming Encounters Date Type Department Care Team (Late st Contact Info) Description 03/30/2024 1:00 PM THREAD SINGER Appointment [place] [address] [place] [address] Tomi Celaya MD [address] [place] [address] 07/14/2024 10:00 AM CDT Office Visit [facility] THREE [facility] [place] [facility] [address] [place] [address] Claire Lang PA [address] [facility] [address] [place] [address] documented as of this encounter Visit Diagnoses Not on filedocumented in this encounter Care Teams Dental Officer Relationship Specialty Start Date End Date Dalton Gonsales MD [address] [place] [address] PCP - General INTERNAL MEDICINE 12/31/23 Miguel Warner DO [address] [place] [address] INTERNAL MEDICINE 12/31/23 documented as of this encounter
--- NOTE | 2024-03-18 21:43 | ED.WOUNDLAC ---
HPI - Wound/Laceration General Chief Complaint: Wound/Laceration Stated Complaint: laceration Time Seen by Provider: 03/18/24 19:35 Source: patient Mode of arrival: ambulatory Limitations: no limitations History of Present Illness HPI narrative: patient is a 73-year-old male with an accident hitting a table and causing a right lower extremity skin wound prior to arrival. Tetanus shot up-to-date in the past 5 years. Patient is on Eliquis. Onset (ago): hour(s) (1) Location: other ( Right lower extremity) Extremity Location: Right: lower leg Place: home Patient tetanus UTD: Yes Context: accidental Associated symptoms: pain Treatments prior to arrival: bandage Related Data Home Medications ?Medication ?Instructions ?Recorded ?Confirmed ?Last Taken ?Type carvedilol 3.125 mg tablet 3.125 mg BID 11/27/21 10/31/23 10/29/23 History 0900 duloxetine 30 mg capsule,delayed 30 mg PO DAILY 11/27/21 10/31/23 10/29/23 21:00 History release nortriptyline 25 mg capsule 25 mg DAILY 11/27/21 10/31/23 10/30/23 21:00 History Allergies Allergy/AdvReac Type Severity Reaction Status Date / Time No Known Allergies Allergy Verified 11/16/23 13:20 Review of Systems Review of Systems: All systems reviewed & are unremarkable except as noted in HPI and below Constitutional: Constitutional: Reports no additional constitutional complaints Eyes: Eyes: Reports no additional eye complaints ENT: Reports system reviewed and no additional complaints, except as documented Cardiovascular: Cardiovascular: Reports no additional cardiovascular complaints Respiratory: Respiratory: Reports no additional respiratory complaints Gastrointestinal: Gastrointestinal: Reports no additional gastrointestinal complaints Genitourinary: Genitourinary: Reports no additional male genitourinary complaints Musculoskeletal: Musculoskeletal: Reports no additional musculoskeletal complaints Integumentary/Breasts: Skin/Breast: Reports system reviewed and no additional complaints, except as docu Neurologic: Reports system reviewed and no additional complaints, except as documented Psychiatric: Psychiatric: Reports no additional psychiatric complaints Endocrine: Endocrine: Reports no additional endocrine complaints Hematologic/Lymphatic: Hematologic/Lymphatic: Reports no additional hematologic/lymphatic complaints Allergic/Immunologic: Allergic/Immunologic: Reports no additional allergic/immunologic complaints PMFSH Past Medical History Medical History Orthostatic hypotension Blood thinned due to long-term anticoagulant use Rectal bleeding Acute blood loss anemia Arthritis Depression Hearing loss Atrial fibrillation Hypertension Surgical History Surgical History History of appendectomy 2010 Family History Family History Father Cerebrovascular accident Mother Cancer Other Arthritis Depression Diabetes mellitus HLD (hyperlipidemia) Heart disease Hypertension Social History Social History Smoking status: Never smoker Alcohol intake: former Substance use: never Substance use type: does not use Do You Feel Safe in your Home?: Yes Lack of Transportation: No Lack of Food: Never True Current Housing: I Have Housing Concerned About Future Housing: No Difficulty Paying Gas/Electric Bills: No Difficulty Paying for Meds: No Currently Unemployed: No Education: High School Diploma/GED Difficulty w/ Childcare or Family Care: No Occupation/Education: occupation Gender identity (if verbalized by the patient): Male Spiritual care concerns: No Exam Const: General: healthy appearing Nutritional Appearance: well nourished Orientation/consciousness: patient oriented x3 HENMT: Head: normal to inspection Ears: external ears normal Face/Nose/Sinus: Normal external nose present Eyes: Conjunctivae: conjunctivae normal Pupils: Equal, round and reactive pupils present EOM: EOMs intact bilaterally Neck: Neck: normal visual inspection Chest: Chest palpation & inspection: normal inspection of the chest Resp: Effort & Inspection: normal respiratory effort and not labored Auscultation: clear to auscultation bilaterally and no crackles Cardio: Rate: regular rate Rhythm: regular rhythm Heart sounds: no murmurs GI: Inspection: non-distended GI Palp: Yes Soft to palpation and No Tenderness to palpation present (GI) Auscultation: normal bowel sounds Back/Spine/Pelvis: Back: no CVA tenderness Skin: General skin exam: normal color Rashes: no rashes Wounds: wound noted and wounds noted Other: right lower extremity lateral aspect has a 4 cm superficial skin tear with minimal bleeding Neuro: General: patient oriented x3 Cranial nerves: Yes Nystagmus not present Speech: normal speech Extrem: General: normal to inspection Psych: Mental Status: mental status grossly normal Affect: normal affect Attitude: cooperative Course Vital Signs Vital signs: Vital Signs Temperature 36.1 C L 03/18/24 19:27 Pulse Rate 97 03/18/24 19:27 Respiratory Rate 18 03/18/24 19:27 Blood Pressure 168/105 H 03/18/24 19:27 Pulse Oximetry 100 03/18/24 19:27 Oxygen Delivery Room Air 03/18/24 19:27 Temperature 36.1 C L 03/18/24 19:27 Pulse Rate 97 03/18/24 19:27 Respiratory Rate 18 03/18/24 19:27 Blood Pressure 168/105 H 03/18/24 19:27 Pulse Oximetry 100 03/18/24 19:27 Oxygen Delivery Room Air 03/18/24 19:27 MDM - Wound/Laceration MDM Narrative Medical decision making narrative: patient is a 73-year-old male with a right leg laceration/skin tear. Tetanus shot up-to-date. We will use adhesive glue and Steri-Strips. This is not deep enough to warrant stitches or staple. the injury was not hard enough to warrant a x-ray per the patient's history. Discharge Plan Discharge Clinical Impression: Leg wound, right Qualifiers: Encounter type: initial encounter Qualified Code(s): S81.801A - Unspecified open wound, right lower leg, initial encounter Patient Disposition: Home, Self-Care Condition: Stable Instructions: Skin Avulsion (ED), Skin Adhesive Care (ED) Patient Language: Bahamian Prescriptions: No Action carvedilol 3.125 mg tablet 3.125 mg BID nortriptyline 25 mg capsule 25 mg DAILY duloxetine 30 mg capsule,delayed release(DR/EC) 30 mg PO DAILY ferrous gluconate 324 mg (38 mg iron) tablet 324 mg PO DAILY Qty: 30 1RF Eliquis DVT-PE Treat 30D Start 5 mg (74 tabs) tablets,dose pack 2.5 mg PO ONCE 30 Days Qty: 15 0RF Follow-up/Referrals: Dalton Gonsales MD [Primary Care Provider] - Time of Disposition: 21:45
[2024-03-18 22:13] VITALS: BP 155/71; PULSE 69; RESP 18; O2SAT 100
== END 2024-03-18 22:13 | disposition home or self-care (01) ==
PROVIDERS: Emergency Provider Emergency Medicine; PCP Internal Medicine
DX: S81.811A Laceration without foreign body, right lower leg, initial encounter (principal); W22.03XA Walked into furniture, initial encounter; Z79.01 Long term (current) use of anticoagulants
CPT/HCPCS: 12001; 12002; 99282

== ENCOUNTER 2025-01-25 10:22 | Outpatient (CLI) | payer MEDICARE, SELFPAY ==
[2025-01-25 10:59] LABS: Add Urine Microscopic? YES; Appearance Urine Clear (Clear); Glucose Urine UA Negative (Negative); Hematocrit 39.8 % (37.0-46.0); Hemoglobin 13.4 g/dL (12.4-15.3); Leukocyte Esterase Ur Negative (Negative); Mean Corpuscular HGB Conc 33.7 g/dL (32-36); Mean Corpuscular Hemoglobin 33.5 pg (27.0-31.0); Mean Corpuscular Volume 99.5 fL (78.0-102.0); Nitrate Urine Negative (Negative); Platelet Count Result 311 K/mm3 (150-420); Red Blood Count 4.00 M/mm3 (4.70-6.10); Specific Grav Ur 1.020 (1.010-1.020); White Blood Count 7.5 K/mm3 (4.8-10.8)
[2025-01-25 11:38] LABS: Alanine Aminotransferase 36 U/L (6-50); Albumin Level 4.7 g/dL (3.5-5.1); Alkaline Phosphatase 114 U/L (38-126); Anion Gap 11 mmol/L (4-12); Aspartate Amino Transferase 40 U/L (17-59); Bilirubin,Total 0.6 mg/dL (0.2-1.3); Blood Urea Nitrogen 32 mg/dL (9-20); CRP 1.1 mg/dL (<1.0); Calcium 10.0 mg/dL (8.4-10.2); Carbon Dioxide 26 mmol/L (22-30); Chloride 103 mmol/L (98-107); Cholesterol 168 mg/dL (0-200); Estimated Glomerular Filt Rate > 60; Glucose 107 mg/dL (65-110); HDL Direct 49 mg/dL; Osmolality Calculated 296 mOsm/kg (285-295); Potassium 4.7 mmol/L (3.4-5.0); Sodium 140 mmol/L (137-145); Total Protein 7.2 g/dL (6.3-8.2); Triglycerides 97 mg/dL (<150)
[2025-01-25 12:06] LABS: Prostate Specific Antigen 0.4 ng/mL (< OR = 4.0); Thyroid Stimulating Hormone 2.470 uIU/mL (0.465-4.680)
[2025-01-27 08:55] LABS: Hemoglobin A1C 4.8 % (<5.7)
== END 2025-01-25 10:23 | disposition home or self-care (01) ==
PROVIDERS: PCP Internal Medicine; Visit Provider Internal Medicine
DX: I48.91 Unspecified atrial fibrillation (principal); M13.0 Polyarthritis, unspecified; Z12.5 Encounter for screening for malignant neoplasm of prostate; Z13.6 Encounter for screening for cardiovascular disorders; R73.01 Impaired fasting glucose
CPT/HCPCS: 36415; 80053; 80061; 81001; 83036; 84153; 84443; 85027; 86140; G0103

== ENCOUNTER 2025-01-30 07:14 | Outpatient (CLI) | payer MEDICARE, SELFPAY ==
--- NOTE | 2025-01-30 | CY_PTH ---
PATIENT: Levon Lake LOC: [facility] U#:[id number] AGE/SX: 74/M ROOM: RE01/30/[address]: Dalton Gonsales MD : [id number] BED: DIS: 01/30/2025 SPEC #: [id number] RECD: 01/30/25 07:36 STATUS: ENT REQ #: [id number] LUIS ENRIQUE: 01/30/25 00:[address]: Dalton Gonsales DEPT: [facility] Cytology RECD BY: Carrie Vaughn MLT, ([facility]) Tissues: A - Thin Prep Non-Gyne Procedures: Thin Prep Non-union carpenter
[2025-01-30 07:32] LABS: Appearance Urine Clear (Clear); Glucose Urine UA Negative (Negative); Leukocyte Esterase Ur Negative (Negative); Nitrate Urine Negative (Negative); Specific Grav Ur 1.025 (1.010-1.020)
[2025-01-30 07:33] LABS: Add Urine Microscopic? YES
== END 2025-01-30 07:15 | disposition home or self-care (01) ==
LOC: CHSLAB 07:16
PROVIDERS: PCP Internal Medicine; Visit Provider Internal Medicine
DX: R31.0 Gross hematuria (principal)
CPT/HCPCS: 81001; 87086; 88112